=== PATIENT | male | born 1955 | race Caucasian/White ===

== ENCOUNTER 2019-08-14 09:41 | Emergency (ER) | payer BC ==
[2019-08-14 09:54] VITALS: TEMP 97.6
[2019-08-14] MEDS ORDERED: SODIUM CHLORIDE 0.9% 1,000 ML IV STA (10:41)
[2019-08-14] MEDS ORDERED: MECLIZINE 12.5 MG TAB PO STA (10:43)
[2019-08-14] MEDS ORDERED: METOCLOPRAMIDE 5 MG/ML 2 ML VIAL IVP STA (10:43)
--- NOTE | 2019-08-14 10:46 | ED ---
General Adult HPI - General Chief complaint: Dizziness Stated complaint: Dizzy Time Seen by Provider: 08/14/19 10:15 Source: patient, RN notes reviewed Mode of arrival: ambulatory Limitations: no limitations - History of Present Illness Initial comments: Patient is a pleasant [age]-year-old male presenting to the emergency Department with complaints of lightheadedness. Onset of symptoms was yesterday afternoon. Patient thought symptoms might be getting better this morning however realized later that they were not. Patient did was Dr. and had his ears cleaned out without much improvement of symptoms. Patient complains of lightheadedness. Symptoms are only present when patient goes from a sitting to standing position. Symptoms lasted around a minute and then resolved. Patient denies spinning type sensation. No speech problems. No confusion. No weakness. No headache. No history of similar symptoms previously. - Related Data Home Medications Medication Instructions Recorded Confirmed Levothyroxine Sodium [Synthroid] 175 mcg PO DAILY 08/14/19 08/14/19 Omeprazole 20 mg PO DAILY 08/14/19 08/14/19 Previous Rx's Medication Instructions Recorded Meclizine [Antivert] 25 mg PO TID PRN #12 tab 08/14/19 Metoclopramide HCl [Reglan] 10 mg PO Q6HR PRN #15 tablet 08/14/19 Allergies Allergy/AdvReac Type Severity Reaction Status Date / Time No Known Allergies Allergy Verified 08/14/19 14:21 Review of Systems ROS Statement: Those systems with pertinent positive or pertinent negative responses have been documented in the HPI. ROS Other: All systems not noted in ROS Statement are negative. Constitutional: Denies: fever Eyes: Denies: eye pain ENT: Denies: ear pain Respiratory: Denies: cough Cardiovascular: Denies: chest pain Endocrine: Denies: fatigue Gastrointestinal: Denies: abdominal pain Genitourinary: Denies: dysuria Musculoskeletal: Denies: back pain Skin: Denies: rash Neurological: Reports: as per HPI. Denies: headache, weakness, numbness, paresthesias, confusion, abnormal gait Past Medical History Past Medical History: No Reported History History of Any Multi-Drug Resistant Organisms: MRSA Date of last positivie culture/infection: 05/30/18 MDRO Source:: RIGHT LEG Past Surgical History: Hernia Repair Past Psychological History: No Psychological Hx Reported Smoking Status: Never smoker Past Alcohol Use History: Occasional Past Drug Use History: None Reported General Exam Limitations: no limitations General appearance: alert, in no apparent distress Head exam: Present: normocephalic Eye exam: Present: normal appearance, PERRL, EOMI. Absent: nystagmus ENT exam: Present: normal oropharynx Neck exam: Present: normal inspection Respiratory exam: Present: normal lung sounds bilaterally Cardiovascular Exam: Present: regular rate, normal rhythm GI/Abdominal exam: Present: soft. Absent: tenderness Extremities exam: Present: normal inspection Neurological exam: Present: alert, oriented X3, CN II-XII intact. Absent: motor sensory deficit Expanded Neurological exam: Present: protecting the airway Patient oriented to: Present: person, place, time Speech: Present: fluid speech Cranial nerves: EOM's Intact: Normal, Facial Sensation: Normal Cerebellar function: Finger to Nose: Normal Sensory exam: Upper Extremity Light Touch: Normal, Lower Extremity Light Touch: Normal Motor strength exam: RUE: 5, LUE: 5, RLE: 5, LLE: 5 Eye Response: (4) open spontaneously Motor Response: (6) obeys commands Verbal Response: (5) oriented Psychiatric exam: Present: normal affect, normal mood Skin exam: Present: normal color Course Vital Signs 08/14/19 08/14/19 08/14/19 09:50 10:05 12:34 Temperature 97.6 F Pulse Rate 52 L 55 L 45 L Respiratory 18 16 18 Rate Blood Pressure 165/118 160/99 151/95 O2 Sat by Pulse 100 99 97 Oximetry 08/14/19 14:24 Temperature Pulse Rate 52 L Respiratory 18 Rate Blood Pressure O2 Sat by Pulse 100 Oximetry EKG Findings - EKG Comments: EKG Findings:: Sinus bradycardia 47. SC 166. QRS 84. QT 434. QTC is 384. Left axis. Normal QRS. No acute ST change. Medical Decision Making - Medical Decision Making Patient reevaluated and resting comfortably in bed. Patient states he does get anxious when the blood pressure monitor goes off and believes this why his blood pressure is been on the high side. Patient states blood pressure was normal and his doctor's office earlier today. Patient is updated on results and need for follow-up. Patient states symptoms have significantly improved. Patient requesting discharge home. - Lab Data Result diagrams: 08/14/19 10:51 08/14/19 10:51 Lab Results 08/14/19 08/14/19 08/14/19 Range/Units 10:51 10:51 10:51 WBC 6.6 (3.8-10.6) k/uL RBC 4.94 (4.30-5.90) m/uL Hgb 15.2 (13.0-17.5) gm/dL Hct 44.5 (39.0-53.0) % MCV 90.2 (80.0-100.0) fL MCH 30.7 (25.0-35.0) pg MCHC 34.1 (31.0-37.0) g/dL RDW 12.7 (11.5-15.5) % Plt Count 241 (150-450) k/uL Neutrophils % 60 % Lymphocytes % 28 % Monocytes % 6 % Eosinophils % 3 % Basophils % 1 % Neutrophils # 3.9 (1.3-7.7) k/uL Lymphocytes # 1.9 (1.0-4.8) k/uL Monocytes # 0.4 (0-1.0) k/uL Eosinophils # 0.2 (0-0.7) k/uL Basophils # 0.0 (0-0.2) k/uL PT 9.6 (9.0-12.0) sec INR 0.9 (<1.2) APTT 22.8 (22.0-30.0) sec Sodium 137 (137-145) mmol/L Potassium 4.2 (3.5-5.1) mmol/L Chloride 105 (98-107) mmol/L Carbon Dioxide 24 (22-30) mmol/L Anion Gap 8 mmol/L BUN 17 (9-20) mg/dL Creatinine 0.99 (0.66-1.25) mg/dL Est GFR (CKD-EPI)AfAm >90 (>60 ml/min/1.73 sqM) Est GFR (CKD-EPI)NonAf 82 (>60 ml/min/1.73 sqM) Glucose 98 (74-99) mg/dL Calcium 9.5 (8.4-10.2) mg/dL Total Bilirubin 1.2 (0.2-1.3) mg/dL AST 32 (17-59) U/L ALT 37 (4-49) U/L Alkaline Phosphatase 59 (38-126) U/L Total Protein 7.4 (6.3-8.2) g/dL Albumin 4.3 (3.5-5.0) g/dL - Radiology Data Radiology results: report reviewed (Computed tomography scan of the brain shows no hemorrhage or mass effect. Degenerative and nonspecific changes. Hyperdense segment millimeter M1 segment of right MCA. CT angios shows no significant stenosis or aneurysmal changes. Including right M1 segment.) Disposition Clinical Impression: Lightheadedness, Hypertension Disposition: HOME SELF-CARE Condition: Stable Instructions (If sedation given, give patient instructions): Dizziness (ED) Additional Instructions: Please follow-up with primary care physician in the next day or 2 for recheck. Have primary care physician recheck blood pressure. Return for confusion, weakness, increased lightheadedness, worsening symptoms or other concerns. [id number] Antivert as needed. Prescription sent to [email or web address]. Prescriptions: Meclizine [Antivert] 25 mg PO TID PRN #12 tab PRN Reason: dizziness Metoclopramide HCl [Reglan] 10 mg PO Q6HR PRN #15 tablet PRN Reason: Nausea Is patient prescribed a controlled substance at d/c from ED?: No Referrals: Dano Diaz MD [Primary Care Provider] - 1-2 days Time of Disposition: 14:30
[2019-08-14 11:07] LABS: Basophils % (A) 1 %; Eosinophils # (A) 0.2 k/uL (0-0.7); Eosinophils % (A) 3 %; HCT 44.5 % (39.0-53.0); HGB 15.2 gm/dL (13.0-17.5); Lymphocytes # (A) 1.9 k/uL (1.0-4.8); Lymphocytes % (A) 28 %; MCH 30.7 pg (25.0-35.0); MCHC 34.1 g/dL (31.0-37.0); MCV 90.2 fL (80.0-100.0); Mean Platelet Volume 7.5; Monocytes # (A) 0.4 k/uL (0-1.0); Monocytes % (A) 6 %; Neutrophils # (A) 3.9 k/uL (1.3-7.7); Neutrophils % (A) 60 %; Platelet Count 241 k/uL (150-450); RBC 4.94 m/uL (4.30-5.90); RDW 12.7 % (11.5-15.5); WBC 6.6 k/uL (3.8-10.6)
[2019-08-14 11:16] LABS: INR 0.9 (<1.2); Partial Thromboplastin Time 22.8 sec (22.0-30.0); Prothrombin Time 9.6 sec (9.0-12.0)
[2019-08-14 11:20] LABS: ALT 37 U/L (4-49); AST 32 U/L (17-59); African American GFR (CKD) >90 (>60 ml/min/1.73 sqM); Albumin 4.3 g/dL (3.5-5.0); Alkaline Phosphatase 59 U/L (38-126); Anion Gap 8 mmol/L; Blood Urea Nitrogen 17 mg/dL (9-20); Calcium 9.5 mg/dL (8.4-10.2); Carbon Dioxide 24 mmol/L (22-30); Chloride 105 mmol/L (98-107); Glucose 98 mg/dL (74-99); Non-African American GFR(CKD) 82 (>60 ml/min/1.73 sqM); Potassium 4.2 mmol/L (3.5-5.1); Sodium 137 mmol/L (137-145); Total Bilirubin 1.2 mg/dL (0.2-1.3); Total Protein 7.4 g/dL (6.3-8.2)
--- NOTE | 2019-08-14 11:49 | CT ---
EXAMINATION TYPE: CT brain wo con DATE OF EXAM: 08/14/2019 COMPARISON: None HISTORY: Vertigo CT DLP: 989.5 mGycm Automated exposure control for dose reduction was used. FINDINGS: Mild generalized degenerative change. Low-attenuation the white matter is nonspecific but most typica l remote microvascular ischemia. Intracranial atherosclerotic changes are seen. Craniocervical juncti on is maintained. Portion of the right MCA is somewhat dense in appearance which may be related to pa rtial volume averaging with atherosclerotic changes. CTA is recommended. IMPRESSION: 1. No evidence of acute hemorrhage or mass effect. Degenerative and nonspecific white matter changes most typical remote ischemia. 2. Portion of the M1 segment of the right MCA is somewhat hyperdense which could be related to partia l volume averaging with atherosclerotic changes. However, recommend CTA [place] to exclude t hrombus and demonstrate normal enhancement of the artery.
[2019-08-14 12:35] VITALS: RESP 18
--- NOTE | 2019-08-14 13:24 | CT ---
EXAMINATION TYPE: CT angio head DATE OF EXAM: 08/14/2019 HISTORY: Dizziness and vertigo. COMPARISON: CT brain earlier today CT DLP: 830.2 mGycm. Automated Exposure Control for Dose Reduction was Utilized. TECHNIQUE: CTA scan of the head is performed with IV Contrast, patient injected with 100 mL of Isovu e 300, axial images are obtained, coronal and sagittal reformatted images are reviewed. Three-D recon structed images are created on an independent workstation and reviewed. FINDINGS: There is some tortuous course to distal vertebral arteries. Vertebral arteries are patent to basilar junction. Patent small caliber right posterior communicating artery. There is hypoplastic left posterior commun icating artery. No significant focal stenosis or aneurysmal change of the posterior circulation is pr esent. Images of the anterior circulation show patent small length anterior communicating artery. There is n o significant focal stenosis or parenchymal change in the anterior circulation including the right M1 segment at area of concern on recent CT. Good flow is seen in the remainder of right middle cerebral artery to the trifurcation distal to this. IMPRESSION: No significant stenosis or aneurysmal change at the level of [place].
[2019-08-14] MEDS ORDERED: amLODIPine 5 MG TAB PO STA ×2 (14:32→15:04)
[2019-08-14] MEDS ORDERED: LORazepam 2 MG/ML INJ IV STA (15:56)
[2019-08-14 16:51] VITALS: BP 146/92; PULSE 83
== END 2019-08-14 17:45 | disposition home or self-care (01) ==
LOC: EC 09:41
DX: I10 Essential (primary) hypertension (principal); R42 Dizziness and giddiness; Z86.14 Personal history of Methicillin resistant Staphylococcus aureus infection
CPT/HCPCS: 36415; 93005; 80053; 85025; 85610; 85730; 70496; 70450; 99284; 96374; 96375; 96361 ×6; J2060; J2765; Q9967

== ENCOUNTER → 2020-07-25 | Outpatient (CLI) | payer BC ==
--- NOTE | 2020-07-25 11:45 | US ---
EXAMINATION TYPE: US abdomen complete DATE OF EXAM: 07/25/2020 COMPARISON: NONE CLINICAL HISTORY: R10.9 Abdominal pain. recent episode with diverticulitis, no pain today EXAM MEASUREMENTS: Liver Length: 14.7cm Gallbladder Wall: 0.2cm CBD: 0.7cm Spleen: 13.8cm Right Kidney: 10.6 x 4.3 x 5.2cm Left Kidney: 10.7 x 4.9 x 5.4cm Pancreas: wnl Liver: wnl Gallbladder: 2 probable stones seen with no wall thickening Evidence for sonographic Youssef's sign: no CBD: wnl Spleen: slightly enlarged Right Kidney: wnl Left Kidney: wnl Upper IVC: wnl Abd Aorta: wnl IMPRESSION: 1. Cholelithiasis
== END | disposition home or self-care (01) ==
LOC: RADUSWWP 08:58
PROVIDERS: ATTEND Family Medicine
DX: K80.20 Calculus of gallbladder without cholecystitis without obstruction (principal)
CPT/HCPCS: 76700

== ENCOUNTER → 2021-07-02 | Day surgery (SDC) | payer BC ==
[~2021-07-02] MED LIST: LACTATED RINGERS 1,000 ML IV SCH; LIDOCAINE 1% (10MG/ML) FOR IV START INTRADERMA PRN; LIDOCAINE 1% INJ 10MG/ML (20 ML MDV) ONE; PROPOFOL 10 MG/ML 20 ML VIAL IV ONE
[2021-07-02 08:53] VITALS: BP 145/68; PULSE 77; RESP 18; TEMP 98.4
--- NOTE | 2021-07-02 12:22 | P.PCN ---
Date of Procedure: 07/02/21 Procedure(s) Performed: BRIEF HISTORY: Patient is a 65-year-old, pleasant, white male scheduled for an upper endoscopy as a part of evaluation of severe heartburn/intermittent dysphagia to solids of 1 year duration. Patient has long-standing history of GERD and has been on omeprazole 20 mg daily for a year but he was advised to change to Prevacid 20 mg twice daily because of the concern of side effects. In the last 6 months his symptoms have been progressively getting worse and hence scheduled for an upper endoscopy to rule out complicated reflux disease. PROCEDURE PERFORMED: Esophagogastroduodenoscopy with biopsy. PREOPERATIVE DIAGNOSIS: Severe heartburn/intermittent dysphagia to solids of 6 m onths duration. IV sedation per anesthesia. PROCEDURE: After informed consent was obtained, the patient was brought into the endoscopy unit. IV sedation was administered by Anesthesia under continuous monitoring. Initially the Olympus GIF-140 video endoscope was inserted into the mouth. Esophagus intubated without any difficulty. It was gradually advanced into the stomach and duodenum and carefully examined. The bulb and the second part of the duodenum appeared normal. The scope at this time was withdrawn to the stomach, adequately insufflated with air, and upon careful examination, mucosa of the antrum, gastritis and biopsies were done from this area. The body, cardia and the fundus appeared normal. The scope was then withdrawn into the esophagus. On recent hiatal hernia noted. The GE junction was located at 39 cm from the incisors. There were superficial ulcerations in the distal esophagus consistent with LA grade D reflux esophagitis. There was an early distal esophageal stricture identified. Rest of esophagus appeared normal and the patient tolerated the procedure well. IMPRESSION: 1. Early distal esophageal stricture with multiple superficial ulcerations in the esophagus consistent with LA grade D reflux esophagitis. 2. Moderate size hiatal hernia. 2. Mild antral gastritis RECOMMENDATIONS: The findings of this examination were discussed with the patient as well as her family. He was advised to start back on omeprazole 20 mg twice daily for 3 months and follow antireflux measures. He will discontinue the Pepcid for now. He was educated about diet modification. He'll be seen back in office in 3 months.. He continues to have persistent dysphagia in a repeat upper endoscopy dilation in the near future.
== END ==
LOC: ORWHC2ENDO 08:14
PROVIDERS: ATTEND Internal Medicine Gastroenterology
DX: K21.9 Gastro-esophageal reflux disease without esophagitis (principal); K22.2 Esophageal obstruction; K21.00 Gastro-esophageal reflux disease with esophagitis, without bleeding; K44.9 Diaphragmatic hernia without obstruction or gangrene; K29.70 Gastritis, unspecified, without bleeding
CPT/HCPCS: 43239; 88305; J2001; J2704

== ENCOUNTER 2023-10-17 18:44 | Emergency (ER) | payer MEDICARE ==
--- NOTE | 2023-10-17 19:01 | ED ---
Chest Pain HPI - General Source: patient, RN notes reviewed Mode of arrival: ambulatory Limitations: no limitations <Christopher Rubio - Last Filed: 10/17/23 19:01> - History of Present Illness MD Complaint: chest pain, other ( did want patient to get evaluation with chest pain and elevated blood pressure) Onset: during rest, during exertion Pain Location: substernal Pain Radiation: none Severity: moderate Severity scale (1-10): 4 Quality: heaviness Consistency: constant, now resolved Improves With: nothing Worsens With: nothing Anginal Symptoms: other (0) Other Symptoms: other (0) Treatments Prior to Arrival: none <Jackson Phillips - Last Filed: 10/22/23 04:28> - General Chief Complaint: Chest Pain Stated Complaint: Chest Pains Time Seen by Provider: 10/17/23 18:57 - History of Present Illness Initial Comments: 67-year-old male presented to the ED with complaints of chest pain. Patient states that last night started to feel pain in his chest which eventually resolved on its home. States today after playing golf and getting some fluid sat down and started to feel the same type of pain again prompting presentation to the ED for further evaluation. (Christopher Rubio) This is a 67-year-old male to ER for evaluation of chest pain chest pain going up with elevation of blood pressure heaviness on his chest which is all currently resolved (Jackson Phillips) - Related Data Home Medications Medication Instructions Recorded Confirmed Levothyroxine Sodium [Synthroid] 175 mcg PO DAILY 08/14/19 10/19/23 [place]-3 Fatty Acids/Fish Oil [Fish 1 cap PO DAILY 06/27/21 10/19/23 Oil 1,000 mg Softgel] Aspirin EC [Ecotrin Low Dose] 81 mg PO DAILY 10/19/23 10/19/23 Omeprazole [PriLOSEC] 20 mg PO DAILY 10/19/23 10/19/23 Allergies Allergy/AdvReac Type Severity Reaction Status Date / Time No Known Allergies Allergy Verified 10/19/23 07:13 Review of Systems ROS Other: All systems not noted in ROS Statement are negative. <Christopher Rubio - Last Filed: 10/17/23 19:01> ROS Other: All systems not noted in ROS Statement are negative. <Jackson Phillips - Last Filed: 10/22/23 04:28> ROS Statement: Those systems with pertinent positive or pertinent negative responses have been documented in the HPI. Past Medical History Past Medical History: GERD/Reflux, Thyroid Disorder Additional Past Medical History / Comment(s): HAD COVID IN 2020. DIVERTICULITIS. GOUTT History of Any Multi-Drug Resistant Organisms: MRSA Date of last positivie culture/infection: 05/30/18 MDRO Source:: RIGHT LEG Past Surgical History: Hernia Repair Additional Past Surgical History / Comment(s): bilateral ing hernia (EACH AT DIFFERENT TIMES) Past Anesthesia/Blood Transfusion Reactions: No Reported Reaction Past Psychological History: No Psychological Hx Reported Smoking Status: Never smoker Past Alcohol Use History: Occasional Past Drug Use History: None Reported <Christopher Rubio - Last Filed: 10/17/23 19:01> General Exam Limitations: no limitations <Christopher Rubio - Last Filed: 10/17/23 19:01> General appearance: alert, in no apparent distress Head exam: Present: atraumatic, normocephalic, normal inspection Eye exam: Present: normal appearance, PERRL, EOMI. Absent: scleral icterus, conjunctival injection, periorbital swelling ENT exam: Present: normal exam, mucous membranes moist Neck exam: Present: normal inspection. Absent: tenderness, meningismus, lymphadenopathy Respiratory exam: Present: normal lung sounds bilaterally. Absent: respiratory distress, wheezes, rales, rhonchi, stridor Cardiovascular Exam: Present: regular rate, normal rhythm, normal heart sounds. Absent: systolic murmur, diastolic murmur, rubs, gallop, clicks GI/Abdominal exam: Present: soft, normal bowel sounds. Absent: distended, tenderness, guarding, rebound, rigid Extremities exam: Present: normal inspection, full ROM, normal capillary refill. Absent: tenderness, pedal edema, joint swelling, calf tenderness Back exam: Present: normal inspection Neurological exam: Present: alert, oriented X3, CN II-XII intact Psychiatric exam: Present: normal affect, normal mood Skin exam: Present: warm, dry, intact, normal color. Absent: rash <Jackson Phillips - Last Filed: 10/22/23 04:28> - General Exam Comments Initial Comments: Visual Physical Exam Vital signs reviewed General: Well-appearing, nontoxic, no acute distress. Head: Normocephalic, atraumatic Eyes: PERRLA, EOMI ENT: Airway patent Chest: Nonlabored breathing Skin: No visual rash, normal skin tone Neuro: Alert and oriented 3 Musculoskeletal: No gross abnormalities (Christopher Rubio) Course <Jackson Phillips - Last Filed: 10/22/23 04:28> Vital Signs 10/17/23 10/17/23 10/17/23 18:47 20:59 23:35 Temperature 98 F 98.2 F Pulse Rate 76 56 L 50 L Respiratory 16 18 18 Rate Blood Pressure 169/113 168/96 173/90 O2 Sat by Pulse 98 97 96 Oximetry - Reevaluation(s) Reevaluation #1: 10/17/23 22:33 Medical records reviewed (Jackson Phillips) Reevaluation #2: 10/17/23 22:33 Patient symptoms remain resolved, no chest pain (Jackson Phillips) Reevaluation #3: 10/17/23 22:33 Patient informed of results questions answered Studies Chest x-ray is negative for acute disease CTA chest negative for acute disease (Jackson Phillips) Reevaluation #4: Was pt. sent in by a medical professional or institution (Dr. PA, STRAIGHTENING PRESS OPERATOR HELPER, urgent care, hospital, or long-term...) When possible be specific @ -no Did you speak to anyone other than the patient for history (EMS, parent, family, police, friend...)? What history was obtained from this source @ -no Did you review nursing and triage notes (agree or disagree)? Why? @ -agree Are old charts reviewed (outside hosp., previous admission, EMS record, old EKG, old radiological studies, urgent care reports/EKG's, long-term records)? Report findings @ -yes Differential Diagnosis (chest pain, altered mental status, abdominal pain women, abdominal pain men, vaginal bleeding, weakness, fever, dyspnea, syncope, headache, dizziness, GI bleed, back pain, seizure, CVA, palpatations, mental health, musculoskeletal)? @ -prior EKG interpreted by me (3pts min.). @ -yes X-rays interpreted by me (1pt min.). @ -yes negative for acute disease CT interpreted by me (1pt min.). @ -Yes negative for acute disease U/S interpreted by me (1pt. min.). @ -no What testing was considered but not performed or refused? (CT, X-rays, U/S, labs)? Why? @ -none What meds were considered but not given or refused? Why? @ -none Did you discuss the management of the patient with other professionals (professionals i.e. , PA, STRAIGHTENING PRESS OPERATOR HELPER, lab, RT, psych nurse, director social service, manufacturing job titles, teacher, [place] 9 police officer, case advocate)? Give summary @ -no Was smoking cessation discussed for >3mins.? @ -no Was critical care preformed (if so, how long)? @ -no Were there social determinants of health that impacted care today? How? (Homelessness, low income, unemployed, alcoholism, drug addiction, transportation, low edu. Level, literacy, decrease access to med. care, prison, rehab)? @ -none Was there de-escalation of care discussed even if they declined (Discuss DNR or withdrawal of care, Hospice)? DNR status @ -no What co-morbidities impacted this encounter? (DM, HTN, Smoking, COPD, CAD, Cancer, CVA, ARF, Chemo, Hep., AIDS, mental health diagnosis, sleep apnea, morbid obesity)? @ -none Was patient admitted / discharged? Hospital course, mention meds given and route, prescriptions, significant lab abnormalities, going to OR and other pertinent info. @ - 67 male with chest pain and hypertension. No chest pain throughout ER stay. Troponin negative x 2 CT negative as patient did have strange symptoms on 1 side of his head and neck to the other side. Patient has no other findings here in the ER and can be discharged home patient does not want blood pressure control currently Discharged Undiagnosed new problem with uncertain prognosis? @ -no Drug Therapy requiring intensive monitoring for toxicity (Heparin, Nitro, Insulin, Cardizem)? @ -no Were any procedures done? @ -no Diagnosis/symptom? @ -Chest pain Acute, or Chronic, or Acute on Chronic? @ -Acute Uncomplicated (without systemic symptoms) or Complicated (systemic symptoms)? @ -Complicated Side effects of treatment? @ -no Exacerbation, Progression, or Severe Exacerbation? @ -exacerbation Poses a threat to life or bodily function? How? (Chest pain, [place], DC, pneumonia, PE, COPD, DKA, ARF, appy, cholecystitis, CVA, Diverticulitis, Homicidal, Suicidal, threat to staff... and all critical care pts) @ -yes with chest pain (Jackson Phillips) Reevaluation #5: Differential Chest Pain: Stable Angina, Unstable Angina, STEMI, NSTEMI Aortic Dissection, Pneumothorax, Musculoskeletal, Esophageal Spasm GERD, Cholecystitis, Pancreatitis, Zoster, this is not meant to be an all-inclusive list. (Jackson Phillips) Chest Pain MDM <Christopher Rubio - Last Filed: 10/17/23 19:01> <Jackson Phillips - Last Filed: 10/22/23 04:28> - MDM Quicknote portion performed. Signed Christopher Rubio PA-C (Christopher Rubio) 67 male with chest pain and hypertension. No chest pain throughout ER stay. Troponin negative x 2 CT negative as patient did have strange symptoms on 1 side of his head and neck to the other side. Patient has no other findings here in the ER and can be discharged home patient does not want blood pressure control currently (Jackson Phillips) Disposition <Christopher Rubio - Last Filed: 10/17/23 19:01> Is patient prescribed a controlled substance at d/c from ED?: No Time of Disposition: 23:30 <Jackson Phillips - Last Filed: 10/22/23 04:28> Clinical Impression: Atypical chest pain, Chest pain, Hypertension Disposition: HOME SELF-CARE Condition: Good Instructions (If sedation given, give patient instructions): Chest Pain (ED), Hypertension (ED) Referrals: Dano Diaz MD [Primary Care Provider] - 1-2 days
--- NOTE | 2023-10-17 19:18 | XR ---
EXAMINATION TYPE: XR chest 2V DATE OF EXAM: 10/17/2023 7:08 PM CLINICAL INDICATION:Male, 67 years old with history of Chest Pain; [facility] COMPARISON: Chest radiographs from 06/26/2015 TECHNIQUE: XR chest 2V Frontal and lateral views of the chest. FINDINGS: Lungs/Pleura: There is no evidence of pleural effusion, focal consolidation, or pneumothorax. Pulmonary vascularity: Unremarkable. Heart/mediastinum: Cardiomediastinal silhouette is unremarkable. Atherosclerotic calcifications are seen in the aorta. Musculoskeletal: No acute osseous pathology. IMPRESSION: No acute cardiopulmonary disease/process.
[2023-10-17 19:52] LABS: Basophils % (A) 1 %; Eosinophils # (A) 0.2 k/uL (0-0.7); Eosinophils % (A) 3 %; HCT 47.3 % (39.0-53.0); HGB 15.8 gm/dL (13.0-17.5); Lymphocytes # (A) 2.1 k/uL (1.0-4.8); Lymphocytes % (A) 34 %; MCHC 33.5 g/dL (31.0-37.0); MCV 92.4 fL (80.0-100.0); Mean Platelet Volume 8.1; Monocytes # (A) 0.3 k/uL (0-1.0); Monocytes % (A) 5 %; Neutrophils # (A) 3.4 k/uL (1.3-7.7); Neutrophils % (A) 56 %; Platelet Count 256 k/uL (150-450); RBC 5.12 m/uL (4.30-5.90)
[2023-10-17 20:03] LABS: INR 0.9 (<1.2); Prothrombin Time 10.4 sec (10.0-12.5)
[2023-10-17 20:15] LABS: ALT 34 U/L (4-49); AST 34 U/L (17-59); African American GFR (CKD) 86 (>60 ml/min/1.73 sqM); Albumin 4.7 g/dL (3.5-5.0); Alkaline Phosphatase 68 U/L (38-126); Anion Gap 11 mmol/L; Blood Urea Nitrogen 19 mg/dL (9-20); Calcium 9.4 mg/dL (8.4-10.2); Carbon Dioxide 24 mmol/L (22-30); Chloride 104 mmol/L (98-107); Glucose 117 mg/dL (74-99); Non-African American GFR(CKD) 75 (>60 ml/min/1.73 sqM); Potassium 4.2 mmol/L (3.5-5.1); Sodium 139 mmol/L (137-145); Total Bilirubin 1.5 mg/dL (0.2-1.3); Total Protein 7.7 g/dL (6.3-8.2)
[2023-10-17 21:07] VITALS: RESP 18
[2023-10-17] MEDS: SODIUM CHLORIDE 0.9% 1,000 ML IV STA (21:58)
--- NOTE | 2023-10-17 22:27 | CT ---
EXAM: CT Angiography Chest With Intravenous Contrast CLINICAL HISTORY: ITS.REASON CT Reason: Pain TECHNIQUE: Axial computed tomographic angiography images of the chest with intravenous contrast. CTDI is 75.8 mGy and DLP is 353.8 mGy-cm. This CT exam was performed using one or more of the following dose reduction techniques: automated exposure control, adjustment of the mA and/or kV according to patient size, and/or use of iterative reconstruction technique. MIP reconstructed images were created and reviewed. COMPARISON: No relevant prior studies available. FINDINGS: LUNGS: No focal consolidation, pleural effusion, or pneumothorax. Atelectasis at the lung bases. HEART: Cardiomegaly. VASCULATURE: No acute pulmonary embolism. Atherosclerotic changes of the aorta. THYROID: Within normal limits. MEDIASTINUM + LYMPH NODES: There are no pathologically enlarged mediastinal, hilar, or axillary lymph nodes. SUPERIOR ABDOMEN: Hepatic steatosis. Small hiatal hernia. MUSCULOSKELETAL: Degenerative changes. IMPRESSION: No acute pulmonary embolism. Small hiatal hernia.
[2023-10-18 00:11] VITALS: BP 173/90; PULSE 50; TEMP 98.2
== END 2023-10-17 23:39 | disposition home or self-care (01) ==
LOC: EC 18:44
DX: K44.9 Diaphragmatic hernia without obstruction or gangrene (principal); I10 Essential (primary) hypertension; R07.89 Other chest pain
CPT/HCPCS: 36415; 93005; 85379; 80053; 83690; 83735; 84484; 85025; 85610; 85730; 71046; 71275; 99285; 96360; Q9967

== ENCOUNTER 2023-10-19 04:39 | Inpatient (IN) | payer MEDICARE ==
[2023-10-19 05:07] LABS: Basophils # (A) 0.1 k/uL (0-0.2); Basophils % (A) 1 %; Eosinophils # (A) 0.2 k/uL (0-0.7); Eosinophils % (A) 4 %; HCT 49.3 % (39.0-53.0); HGB 16.2 gm/dL (13.0-17.5); Lymphocytes # (A) 2.3 k/uL (1.0-4.8); Lymphocytes % (A) 43 %; MCH 30.6 pg (25.0-35.0); MCHC 32.9 g/dL (31.0-37.0); MCV 93.2 fL (80.0-100.0); Mean Platelet Volume 7.6; Monocytes # (A) 0.4 k/uL (0-1.0); Monocytes % (A) 7 %; Neutrophils # (A) 2.3 k/uL (1.3-7.7); Neutrophils % (A) 43 %; Platelet Count 280 k/uL (150-450); RBC 5.29 m/uL (4.30-5.90); RDW 13.1 % (11.5-15.5); WBC 5.5 k/uL (3.8-10.6)
--- NOTE | 2023-10-19 05:14 | ED ---
Chest Pain HPI - General Chief Complaint: Chest Pain Stated Complaint: Chest pain Time Seen by Provider: 10/19/23 04:54 Source: patient, RN notes reviewed, old records reviewed Mode of arrival: wheelchair Limitations: no limitations - History of Present Illness Initial Comments: This is a 67-year-old male to the ER for evaluation of chest pain chest pain that woke him up from sleep today. Patient has been dealing with high blood pressure and does have a recent ER visit for chest pain and he states at that point he was feeling well in the ER and discharged home. Patient has persistent chest pain severe that woke him up from sleep today and patient presents to ER for evaluation of chest pain does have primary care visit today as well MD Complaint: chest pain -: hour(s) Onset: awoke with symptoms Pain Location: substernal Pain Radiation: none Severity: severe Severity scale (1-10): 8 Quality: tightness, aching, heaviness Consistency: constant Improves With: nothing Worsens With: nothing Context: recent illness Other Symptoms: cough Treatments Prior to Arrival: none - Related Data Home Medications Medication Instructions Recorded Confirmed Levothyroxine Sodium [Synthroid] 175 mcg PO DAILY 08/14/19 10/25/23 Aspirin EC [Ecotrin Low Dose] 81 mg PO DAILY 10/19/23 10/25/23 Omeprazole [PriLOSEC] 20 mg PO DAILY 10/19/23 10/25/23 Nitroglycerin Sl Tabs [Nitrostat] 0.4 mg SL Q5M PRN 10/25/23 10/25/23 Previous Rx's Medication Instructions Recorded Atorvastatin [Lipitor] 80 mg PO DAILY #90 tab 10/23/23 Clopidogrel [Plavix] 75 mg PO DAILY #90 tab 10/23/23 Isosorbide Mononitrate ER [Imdur] 30 mg PO DAILY #90 tab 10/23/23 Metoprolol Succinate (ER) [Toprol 12.5 mg PO DAILY #45 tab 10/23/23 XL] Allergies Allergy/AdvReac Type Severity Reaction Status Date / Time No Known Allergies Allergy Verified 10/25/23 14:20 Review of Systems ROS Statement: Those systems with pertinent positive or pertinent negative responses have been documented in the HPI. ROS Other: All systems not noted in ROS Statement are negative. EKG Findings - EKG Comments: EKG Findings:: EKG is sinus 61 [place] 171 QRS 82 QTc 422 - EKG Results: EKG: interpreted by LIZZ Past Medical History Past Medical History: GERD/Reflux, Thyroid Disorder Additional Past Medical History / Comment(s): HAD COVID IN 2020. DIVERTICULITIS. GOUTT History of Any Multi-Drug Resistant Organisms: MRSA Date of last positivie culture/infection: 05/30/18 MDRO Source:: RIGHT LEG Past Surgical History: Hernia Repair Additional Past Surgical History / Comment(s): bilateral ing hernia (EACH AT DIFFERENT TIMES) Past Anesthesia/Blood Transfusion Reactions: No Reported Reaction Past Psychological History: No Psychological Hx Reported Smoking Status: Never smoker Past Alcohol Use History: Occasional Past Drug Use History: None Reported - Past Family History Father Family Medical History: Hypertension, Myocardial Infarction (VT) Mother Additional Family Medical History / Comment(s): lupus General Exam Limitations: no limitations General appearance: alert, in no apparent distress Head exam: Present: atraumatic, normocephalic, normal inspection Eye exam: Present: normal appearance, PERRL, EOMI. Absent: scleral icterus, conjunctival injection, periorbital swelling ENT exam: Present: normal exam, mucous membranes moist Neck exam: Present: normal inspection. Absent: tenderness, meningismus, lymphadenopathy Respiratory exam: Present: normal lung sounds bilaterally. Absent: respiratory distress, wheezes, rales, rhonchi, stridor Cardiovascular Exam: Present: regular rate, normal rhythm, normal heart sounds. Absent: systolic murmur, diastolic murmur, rubs, gallop, clicks GI/Abdominal exam: Present: soft, normal bowel sounds. Absent: distended, tenderness, guarding, rebound, rigid Extremities exam: Present: normal inspection, full ROM, normal capillary refill. Absent: tenderness, pedal edema, joint swelling, calf tenderness Back exam: Present: normal inspection Neurological exam: Present: alert, oriented X3, CN II-XII intact Psychiatric exam: Present: normal affect, normal mood Skin exam: Present: warm, dry, intact, normal color. Absent: rash Course Vital Signs 10/19/23 10/19/23 10/19/23 04:40 06:28 07:10 Temperature 97.8 F Pulse Rate 57 L 56 L 50 L Respiratory 18 16 16 Rate Blood Pressure 187/119 177/115 150/106 O2 Sat by Pulse 97 100 100 Oximetry - Reevaluation(s) Reevaluation #1: 10/19/23 05:41 Medical records reviewed Reevaluation #2: 10/19/23 05:41 Patient still without chest pain Reevaluation #3: 10/19/23 05:41 Patient informed of results and questions answered Studies Chest x-ray is negative for acute disease Reevaluation #4: Was pt. sent in by a medical professional or institution (, [facility], PASSENGER LOCOMOTIVE ENGINEER, urgent care, hospital, or assisted...) When possible be specific @ -no Did you speak to anyone other than the patient for history (EMS, parent, family, police, friend...)? What history was obtained from this source @ -no Did you review nursing and triage notes (agree or disagree)? Why? @ -agree Are old charts reviewed (outside hosp., previous admission, EMS record, old EKG, old radiological studies, urgent care reports/EKG's, assisted records)? Report findings @ -yes Differential Diagnosis (chest pain, altered mental status, abdominal pain women, abdominal pain men, vaginal bleeding, weakness, fever, dyspnea, syncope, h eadache, dizziness, GI bleed, back pain, seizure, CVA, palpatations, mental health, musculoskeletal)? @ -prior EKG interpreted by me (3pts min.). @ -yes X-rays interpreted by me (1pt min.). @ -yes negative for acute disease CT interpreted by me (1pt min.). @ -no U/S interpreted by me (1pt. min.). @ -no What testing was considered but not performed or refused? (CT, X-rays, U/S, labs)? Why? @ -none What meds were considered but not given or refused? Why? @ -none Did you discuss the management of the patient with other professionals (professionals i.e. , [facility], PASSENGER LOCOMOTIVE ENGINEER, lab, RT, psych nurse, clinical social work therapist, shrimp trawler, teacher, workers' compensation hearings officer, casework specialist)? Give summary @ -no Was smoking cessation discussed for >3mins.? @ -no Was critical care preformed (if so, how long)? @ -yes31 Were there social determinants of health that impacted care today? How? (Homelessness, low income, unemployed, alcoholism, drug addiction, transportation, low edu. Level, literacy, decrease access to med. care, senior care, rehab)? @ -none Was there de-escalation of care discussed even if they declined (Discuss DNR or withdrawal of care, Hospice)? DNR status @ -no What co-morbidities impacted this encounter? (DM, HTN, Smoking, COPD, CAD, Cancer, CVA, ARF, Chemo, Hep., AIDS, mental health diagnosis, sleep apnea, morbid obesity)? @ -none Was patient admitted / discharged? Hospital course, mention meds given and route, prescriptions, significant lab abnormalities, going to OR and other pertinent info. @ - 67 male will be admitted for chest pain observation with recurrent chest pain to ER visits this week with hypertension Admitted Undiagnosed new problem with uncertain prognosis? @ -no Drug Therapy requiring intensive monitoring for toxicity (Heparin, Nitro, Insulin, Cardizem)? @ -no Were any procedures done? @ -no Diagnosis/symptom? @ -Chest pain, rule out ACS Acute, or Chronic, or Acute on Chronic? @ -Acute Uncomplicated (without systemic symptoms) or Complicated (systemic symptoms)? @ -Complicated Side effects of treatment? @ -no Exacerbation, Progression, or Severe Exacerbation? @ -exacerbation Poses a threat to life or bodily function? How? (Chest pain, [place], VT, pneumonia, PE, COPD, DKA, ARF, appy, cholecystitis, CVA, Diverticulitis, Homicidal, Suicidal, threat to staff... and all critical care pts) @ -yes with chest pain Reevaluation #5: Differential Chest Pain: Stable Angina, Unstable Angina, STEMI, NSTEMI Aortic Dissection, Pneumothorax, Musculoskeletal, Esophageal Spasm GERD, Cholecystitis, Pancreatitis, Zoster, this is not meant to be an all-inclusive list. - Consultations Consultation #1: Spoke with [facility] who agrees to admit this patient Chest Pain MDM - MDM 67 male will be admitted for chest pain observation with recurrent chest pain to ER visits this week with hypertension Critical Care Time Critical Care Time: Yes Total Critical Care Time: 31 Disposition Clinical Impression: Chest pain, Hypertension Disposition: ADMITTED IP TO THIS HOSP Condition: Undetermined Is patient prescribed a controlled substance at d/c from ED?: No
[2023-10-19 05:20] LABS: ALT 33 U/L (4-49); AST 35 U/L (17-59); African American GFR (CKD) >90 (>60 ml/min/1.73 sqM); Albumin 4.6 g/dL (3.5-5.0); Alkaline Phosphatase 65 U/L (38-126); Anion Gap 10 mmol/L; Blood Urea Nitrogen 17 mg/dL (9-20); Calcium 9.6 mg/dL (8.4-10.2); Carbon Dioxide 22 mmol/L (22-30); Chloride 107 mmol/L (98-107); Glucose 96 mg/dL (74-99); Magnesium 1.9 mg/dL (1.6-2.3); Non-African American GFR(CKD) 79 (>60 ml/min/1.73 sqM); Sodium 139 mmol/L (137-145); Total Bilirubin 1.4 mg/dL (0.2-1.3); Total Protein 7.6 g/dL (6.3-8.2)
[2023-10-19] MEDS ORDERED: MORPHINE SULFATE 4 MG/ML SYRINGE IV PRN (05:42)
[2023-10-19] MEDS ORDERED: NITROGLYCERIN SL TABS 0.4 MG TAB SUBLINGUAL PRN (05:42)
[2023-10-19 06:02] LABS: INR 0.9 (<1.2); Partial Thromboplastin Time 24.4 sec (22.0-30.0); Prothrombin Time 10.4 sec (10.0-12.5)
[2023-10-19] MEDS: ASPIRIN 81 MG PO STA (06:09)
[2023-10-19] MEDS: SODIUM CHLORIDE 0.9% 1,000 ML IV SCH (06:10)
[2023-10-19] MEDS: HEPARIN SODIUM 1,000 UN/ML (10ML VL) IV ONE (06:14)
[2023-10-19] MEDS: ATORVASTATIN 80 MG TAB PO SCH (06:14)
[2023-10-19] MEDS: HEPARIN SOD,PORK IN 0.45% NACL 25,000 UNIT in 0.45% NACL 1 250ML.BAG IV SCH ×2 (06:18→11:17)
--- NOTE | 2023-10-19 07:25 | P.CRDCN ---
History of Present Illness Consult date: 10/19/23 Chief complaint: Chest pain History of present illness: The patient is a pleasant 67-year-old gentleman with no significant past medical history who presented to the emergency department complaining of chest discomfort. He was in his usual state of health till yesterday when he woke up from sleep complaining of discomfort in the middle of the chest as a pressure on the chest with no radiation into the arms or neck or shoulders or back and no associated symptoms of shortness of breath or sweating or dizziness or lightheadedness or any feeling of heart racing or fluttering or presyncope or syncope. The discomfort lasted for about 30 minutes and resolved completely after that. He presented for further evaluation. He underwent an EKG which revealed normal sinus mechanism with sinus bradycardia no ischemic ST or T wave abnormalities. First set of troponin came in to be unremarkable. The rest of the blood work including CBC and BMP came in to be unremarkable as well. Please note that his pressure has been elevated and consistent with stage II hypertension but the patient is not aware of any history of hypertension and he does not take any medications at home for hypertension or dyslipidemia and he has no history of coronary artery disease or heart failure or cardiac arrhythmia and never seen any outside collector before. He does have significant family history with a father who has coronary artery disease at a early stage in his life. The examination is remarkable for regular rhythm with a systolic murmur and clear breathing sounds bilaterally and no carotid bruit and no edema was noted Assessment Chest discomfort Hypertension emergency could be the etiology for the chest discomfort Significant family history of coronary artery disease Plan Rule out acute coronary event Follow-up with the serial cardiac enzymes Obtain a chest x-ray Start the patient on losartan/hydrochlorothiazide Start the patient on hydralazine IV as needed for hypertension Obtain an echocardiogram with Doppler Consider stress test once the pressure improve if he ruled out for acute coronary syndrome Follow-up with the patient Past Medical History Past Medical History: GERD/Reflux, Thyroid Disorder Additional Past Medical History / Comment(s): HAD COVID IN 2020. DIVERTICULITIS. GOUTT History of Any Multi-Drug Resistant Organisms: MRSA Date of last positivie culture/infection: 05/30/18 MDRO Source:: RIGHT LEG Past Surgical History: Hernia Repair Additional Past Surgical History / Comment(s): bilateral ing hernia (EACH AT DIFFERENT TIMES) Past Anesthesia/Blood Transfusion Reactions: No Reported Reaction Past Psychological History: No Psychological Hx Reported Smoking Status: Never smoker Past Alcohol Use History: Occasional Past Drug Use History: None Reported Medications and Allergies Home Medications Medication Instructions Recorded Confirmed Type Levothyroxine Sodium [Synthroid] 175 mcg PO DAILY 08/14/19 10/19/23 History [place]-3 Fatty Acids/Fish Oil [Fish 1 cap PO DAILY 06/27/21 10/19/23 History Oil 1,000 mg Softgel] Aspirin EC [Ecotrin Low Dose] 81 mg PO DAILY 10/19/23 10/19/23 History Omeprazole [PriLOSEC] 20 mg PO DAILY 10/19/23 10/19/23 History Allergies Allergy/AdvReac Type Severity Reaction Status Date / Time No Known Allergies Allergy Verified 10/19/23 07:13 Physical Exam Vitals: Vital Signs Temp Pulse Resp BP Pulse Ox 10/19/23 07:10 50 L 16 150/106 100 10/19/23 06:28 56 L 16 177/115 100 10/19/23 04:40 97.8 F 57 L 18 187/119 97 Intake and Output 10/18/23 10/19/23 10/19/23 22:59 06:59 14:59 Other: Weight 83.915 kg Results 10/19/23 04:51 10/19/23 04:51 Cardiac Enzymes 10/19/23 10/19/23 Range/Units 04:51 04:51 AST 35 (17-59) U/L Troponin I <0.012 (0.000-0.034) ng/mL Coagulation 10/19/23 Range/Units 04:51 PT 10.4 (10.0-12.5) sec APTT 24.4 (22.0-30.0) sec CBC 10/19/23 Range/Units 04:51 WBC 5.5 (3.8-10.6) k/uL RBC 5.29 (4.30-5.90) m/uL Hgb 16.2 (13.0-17.5) gm/dL Hct 49.3 (39.0-53.0) % Plt Count 280 (150-450) k/uL Comprehensive Metabolic Panel 10/19/23 Range/Units 04:51 Sodium 139 (137-145) mmol/L Potassium 4.0 (3.5-5.1) mmol/L Chloride 107 (98-107) mmol/L Carbon Dioxide 22 (22-30) mmol/L BUN 17 (9-20) mg/dL Creatinine 1.00 (0.66-1.25) mg/dL Glucose 96 (74-99) mg/dL Calcium 9.6 (8.4-10.2) mg/dL AST 35 (17-59) U/L ALT 33 (4-49) U/L Alkaline Phosphatase 65 (38-126) U/L Total Protein 7.6 (6.3-8.2) g/dL Albumin 4.6 (3.5-5.0) g/dL Current Medications Generic Name Dose Route Start Last Admin Trade Name Freq PRN Reason Stop Dose Admin Aspirin 325 mg 10/20/23 09:00 Aspirin 325 Mg Tab PO DAILY AYUSH Atorvastatin Calcium 80 mg 10/19/23 09:00 10/19/23 06:14 Atorvastatin 80 Mg Tab PO 80 mg DAILY AYUSH Administration HCTZ/Losartan Potassium 1 each 10/19/23 09:00 Losartan-Hctz 50-12.5 Mg 1 Each Tab PO DAILY AYUSH Sodium Chloride 1,000 mls @ 20 mls/hr 10/19/23 05:45 10/19/23 06:10 Saline 0.9% IV 20 mls/hr .Q24H AYUSH Administration Morphine Sulfate 4 mg 10/19/23 05:42 Morphine Sulfate 4 Mg/Ml Syringe IV Q4HR PRN Chest Pain Nitroglycerin 0.4 mg 10/19/23 05:42 Nitroglycerin Sl Tabs 0.4 Mg Tab SUBLINGUAL Q5M PRN Chest Pain Intake and Output 10/18/23 10/19/23 10/19/23 22:59 06:59 14:59 Other: Weight 83.915 kg 10/19/23 04:51 10/19/23 04:51
[2023-10-19] MEDS ORDERED: hydrALAZINE HCL 20 MG/ML 1 ML VIAL IVP PRN (07:28)
--- NOTE | 2023-10-19 08:13 | XR ---
EXAMINATION TYPE: XR chest 2V DATE OF EXAM: 10/19/2023 COMPARISON: 10/17/2023 TECHNIQUE: PA and lateral views submitted. HISTORY: Chest pain FINDINGS: The lungs are clear and there is no pneumothorax, pleural effusion, or focal pneumonia. Heart size normal and no overt failure. Osseous structures demonstrate hypertrophic and degenerative changes of the spine. Arthropathy of the shoulder. IMPRESSION: 1. No acute process.
[2023-10-19] MEDS: LOSARTAN-HCTZ 50-12.5 MG 1 EACH TAB PO SCH (08:36)
[2023-10-19 09:13] LABS: Mean Platelet Volume 7.8; Platelet Count 236 k/uL (150-450)
--- NOTE | 2023-10-19 12:04 | P.HPIM ---
History of Present Illness 62-year-old male came in with complaints of chest pressure-like sensation in the middle of the chest without any radiation lasted for half an hour denies any lightheadedness or diaphoresis, EKG was sinus bradycardia without any ST-T wave changes first troponin was negative second troponin slightly elevated to 0.058 patient had similar symptoms couple days ago was seen in ER 3 sets of troponins were negative patient was subsequently discharged to get an outpatient stress test. Patient has significant family history of heart disease in father who had myocardial infarction at age 68. Patient does not smoke does not have hyperten francoise, hyperlipidemia or diabetes mellitus. Patient has hypothyroidism. REVIEW OF SYSTEMS: CONSTITUTIONAL: No fever, no malaise, no fatigue. HEENT: No recent visual problems or hearing problems. Denied any sore throat. CARDIOVASCULAR: No orthopnea, PND, no palpitations, no syncope. PULMONARY: No shortness of breath, no cough, no hemoptysis. GASTROINTESTINAL: No diarrhea, no nausea, no vomiting, no abdominal pain. NEUROLOGICAL: No headaches, no weakness, no numbness. HEMATOLOGICAL: Denies any bleeding or petechiae. GENITOURINARY: Denies any burning micturition, frequency, or urgency. MUSCULOSKELETAL/RHEUMATOLOGICAL: Denies any joint pain, swelling, or any muscle pain. ENDOCRINE: Denies any polyuria or polydipsia. The rest of the 14-point review of systems is negative. PHYSICAL EXAMINATION: GENERAL: The patient is alert and oriented x3, not in any acute distress. Well d eveloped, well nourished. HEENT: Pupils are round and equally reacting to light. EOMI. No scleral icterus. No conjunctival pallor. Normocephalic, atraumatic. No pharyngeal erythema. No thyromegaly. CARDIOVASCULAR: S1 and S2 present. No murmurs, rubs, or gallops. PULMONARY: Chest is clear to auscultation, no wheezing or crackles. ABDOMEN: Soft, nontender, nondistended, normoactive bowel sounds. No palpable organomegaly. MUSCULOSKELETAL: No joint swelling or deformity. EXTREMITIES: No cyanosis, clubbing, or pedal edema. NEUROLOGICAL: Gross neurological examination did not reveal any focal deficits. SKIN: No rashes. Assessment and plan -Chest pain possibility of non-ST elevation VT: Cardiology evaluated the patient second septal troponin is slightly elevated patient is on IV heparin which should be continued -Possible essential hypertension patient blood pressures are very high patient was started on losartan and as needed hydralazine. -Gastroesophageal reflux disease -Hypothyroidism DVT prophylaxis: On IV heparin at this time Past Medical History Past Medical History: GERD/Reflux, Thyroid Disorder Additional Past Medical History / Comment(s): HAD COVID IN 2020. DIVERTICULITIS. GOUTT History of Any Multi-Drug Resistant Organisms: MRSA Date of last positivie culture/infection: 05/30/18 MDRO Source:: RIGHT LEG Past Surgical History: Hernia Repair Additional Past Surgical History / Comment(s): bilateral ing hernia (EACH AT DIFFERENT TIMES) Past Anesthesia/Blood Transfusion Reactions: No Reported Reaction Past Psychological History: No Psychological Hx Reported Smoking Status: Never smoker Past Alcohol Use History: Occasional Past Drug Use History: None Reported Medications and Allergies Home Medications Medication Instructions Recorded Confirmed Type Levothyroxine Sodium [Synthroid] 175 mcg PO DAILY 08/14/19 10/19/23 History [place]-3 Fatty Acids/Fish Oil [Fish 1 cap PO DAILY 06/27/21 10/19/23 History Oil 1,000 mg Softgel] Aspirin EC [Ecotrin Low Dose] 81 mg PO DAILY 10/19/23 10/19/23 History Omeprazole [PriLOSEC] 20 mg PO DAILY 10/19/23 10/19/23 History Allergies Allergy/AdvReac Type Severity Reaction Status Date / Time No Known Allergies Allergy Verified 10/19/23 07:13 Physical Exam Vitals: Vital Signs Temp Pulse Resp BP Pulse Ox 10/19/23 07:10 50 L 16 150/106 100 10/19/23 06:28 56 L 16 177/115 100 10/19/23 04:40 97.8 F 57 L 18 187/119 97 Intake and Output 10/18/23 10/19/23 10/19/23 22:59 06:59 14:59 Other: Voiding Method Toilet Urinal Weight 83.915 kg Results CBC & Chem 7: 10/19/23 08:20 10/19/23 04:51 Labs: Abnormal Lab Results - Last 24 Hours (Table) 10/19/23 10/19/23 Range/Units 04:51 08:20 Total Bilirubin 1.4 H (0.2-1.3) mg/dL Troponin I 0.058 H* (0.000-0.034) ng/mL
[2023-10-19] MEDS: LEVOTHYROXINE 88 MCG TAB PO SCH (13:49)
[2023-10-19] MEDS: HEPARIN SODIUM 1,000 UN/ML (10ML VL) IV PRN (18:06)
[2023-10-19] MEDS: ACETAMINOPHEN TAB 325 MG TAB PO PRN (20:16)
[2023-10-20] MEDS: PANTOPRAZOLE 40 MG TABLET PO SCH (06:23)
--- NOTE | 2023-10-20 07:23 | CA ---
Transthoracic Echo Report Name: Wagner Wallace Age: 67 Gender: M : 1955 Exam Date: 10/19/2023 09:31 Exam Location: [place] [facility] Ht (in): 70 Wt (lb): 185 Ordering Physician: Jackson Phillips DO Attending/Referring Phys: [id number], Jacqueline Financial Reporting Consultant Marcella Alan RDCS Procedure CPT: Indications: CP Cardiac Hx: Technical Quality: Good Contrast 1: Total Dose (mL): Contrast 2: Total Dose (mL): MEASUREMENTS (Male / Female) Normal Values 2D ECHO LV Diastolic Diameter PLAX 5.3 cm 4.2 - 5.9 / 3.9 - 5.3 cm LV Systolic Diameter PLAX 4.0 cm IVS Diastolic Thickness 1.1 cm 0.6 - 1.0 / 0.6 - 0.9 cm LVPW Diastolic Thickness 1.1 cm 0.6 - 1.0 / 0.6 - 0.9 cm LV Relative Wall Thickness 0.4 RV Internal Dim ED PLAX 3.3 cm LVOT Diameter 2.3 cm Aortic Root Diameter 3.9 cm LV Diastolic Volume MOD BP 140.4 cm??? 67 - 155 / 56 - 104 cm??? LV Systolic Volume MOD BP 53.3 cm??? 22 - 58 / 19 - 49 cm??? LV Ejection Fraction MOD BP 62.0 % >= 55 % LV Cardiac Index MOD BP 2167.0 cm???/min???m??? LV Diastolic Volume MOD 4C 154.1 cm??? LV Systolic Volume MOD 4C 53.6 cm??? LV Ejection Fraction MOD 4C 65.2 % LV Cardiac Index MOD 4C 2502.3 cm???/min???m??? LV Diastolic Length 4C 8.8 cm LV Systolic Length 4C 7.1 cm LV Diastolic Volume MOD 2C 122.6 cm??? LV Systolic Volume MOD 2C 53.2 cm??? LV Ejection Fraction MOD 2C 56.6 % LV Cardiac Index MOD 2C 1728.8 cm???/min???m??? LV Diastolic Length 2C 8.4 cm LV Systolic Length 2C 7.1 cm Ascending Aorta Diameter 4.1 cm DOPPLER AV Peak Velocity 121.1 cm/s AV Peak Gradient 5.9 mmHg AV Mean Velocity 83.7 cm/s AV Mean Gradient 3.1 mmHg AV Velocity Time Integral 28.0 cm LVOT Peak Velocity 90.5 cm/s LVOT Peak Gradient 3.3 mmHg LVOT Velocity Time Integral 21.1 cm LVOT Stroke Volume 87.9 cm??? LVOT Stroke Volume Index 43.6 ml/m??? LVOT Cardiac Index 2189.3 cm???/min???m??? AV Area Cont Eq vti 3.1 cm??? AV Area Cont Eq pk 3.1 cm??? Mitral E Point Velocity 49.6 cm/s Mitral A Point Velocity 81.9 cm/s Mitral E to A Ratio 0.6 MV Deceleration Time 224.0 ms MV E' Velocity 4.9 cm/s Mitral E to MV E' Ratio 10.2 PV Peak Velocity 79.3 cm/s PV Peak Gradient 2.5 mmHg FINDINGS Left Ventricle Left ventricular ejection fraction is estimated at 55-60 %. Mildly increased septal wall thickness. Left ventricular cavity size normal. No obvious regional wall motion abnormalities. Right Ventricle Borderline enlarged right ventricle with normal function. Unable to estimate the right ventricular systolic pressure. Right Atrium Mild right atrial dilatation. Left Atrium Mild left atrial dilatation. Mitral Valve Mitral valve thickened. No evidence for mitral valve prolapse. No mitral regurgitation. [id number] mitral regurgitation. Aortic Valve Trileaflet aortic valve. No aortic valve stenosis or regurgitation. Tricuspid Valve Structurally normal tricuspid valve. No tricuspid stenosis. Trace tricuspid regurgitation. Pulmonic Valve Structurally normal pulmonic valve. No pulmonic stenosis. Mild pulmonic regurgitation. Pericardium No pericardial effusion. Aorta Aortic annulus normal. Ascending aorta mildly enlarged. CONCLUSIONS Normal LV systolic function. The ejection fraction is 55-60% Dilated RV with normal function [id number] mitral regurgitation Previewed by: Dr. Jacinto Hernandez MD (Electronically Signed) Final Date: 20 Oct 2023 07:22
[2023-10-20] MEDS: ASPIRIN 325 MG TAB PO SCH (08:56)
[2023-10-20 11:25] LABS: Mean Platelet Volume 8.5; Platelet Count 246 k/uL (150-450)
--- NOTE | 2023-10-20 14:05 | P.PN ---
Subjective Progress Note Date: 10/20/23 Chief complaint: Chest pain History of present illness: The patient is a pleasant 67-year-old gentleman with no significant past medical history who presented to the emergency department complaining of chest discomfort. He was in his usual state of health till yesterday when he woke up from sleep complaining of discomfort in the middle of the chest as a pressure on the chest with no radiation into the arms or neck or shoulders or back and no associated symptoms of shortness of breath or sweating or dizziness or lightheadedness or any feeling of heart racing or fluttering or presyncope or syncope. The discomfort lasted for about 30 minutes and resolved completely after that. He presented for further evaluation. He underwent an EKG which revealed normal sinus mechanism with sinus bradycardia no ischemic ST or T wave abnormalities. First set of troponin came in to be unremarkable. The rest of the blood work including CBC and BMP came in to be unremarkable as well. Please note that his pressure has been elevated and consistent with stage II hypertension but the patient is not aware of any history of hypertension and he does not take any medications at home for hypertension or dyslipidemia and he has no history of coronary artery disease or heart failure or cardiac arrhythmia and never seen any automotive service director before. He does have significant family history with a father who has coronary artery disease at a early stage in his life. The examination is remarkable for regular rhythm with a systolic murmur and clear breathing sounds bilaterally and no carotid bruit and no edema was noted 10/19 Patient is seen today in follow-up. Blood pressure readings are improved at 142/86, heart rate between 48 and 55. Pulse ox 97% on room air. Repeat troponins are 0.058 and 0.079. Chest x-ray reveals no acute process. Echocardiogram reveals normal LV systolic function, EF 55 to 60%. Dilated RV with normal function. Mild to moderate mitral regurgitation. Patient has been continued on a heparin drip. Dr. Holden discussed in detail with the patient the options of stress testing versus cardiac catheterization including risk and benefits of both. Patient has agreed to stay for stress test tomorrow. Physical Examination Gen: This is a 67-year-old male in no acute distress HEENT: Head is atraumatic, normocephalic. Pupils equal, round. Sclerae is anicteric. LUNGS: Clear to auscultation. No wheezes or rhonchi. No intercostal retractions. HEART: Regular rate and rhythm. Systolic murmur. EXTREMITIES: No pedal edema. No calf tenderness. NEUROLOGICAL: Patient is awake, alert and oriented x3. Assessment Chest discomfort Hypertension emergency could be the etiology for the chest discomfort Significant family history of coronary artery disease Plan Ruled out acute coronary event Continue patient on losartan/hydrochlorothiazide Discontinue heparin drip Schedule patient for stress echocardiogram tomorrow Follow-up with the patient Nurse practitioner note has been reviewed, I agree with documented findings and plan of care. Patient was seen and examined. Objective - Vital Signs Vital signs: Vital Signs Temp 97.8 F 10/20/23 08:27 Pulse 48 L 10/20/23 12:00 Resp 16 10/20/23 12:00 BP 142/86 10/20/23 12:00 Pulse Ox 97 10/20/23 12:00 FiO2 Intake & Output 10/19/23 10/20/23 10/20/23 18:59 06:59 18:59 Intake Total 65 169.41 Output Total 300 Balance -235 169.41 Weight 83.915 kg Intake: Intake, IV Titration 65 169.41 Amount Heparin Sod,Pork in 0.45% 65 169.41 NaCl 25,000 unit In 0.45 % NaCl 1 250ml.bag @ 11. 917 UNITS/KG/HR 10 mls/hr IV .Q24H AYUSH Rx#: [id number] Output: Urine 300 Other: Voiding Method Toilet Toilet Urinal Urinal # Voids 2 2 - Labs CBC & Chem 7: 10/20/23 09:30 10/19/23 04:51 Labs: Abnormal Lab Results - Last 24 Hours (Table) 10/19/23 10/19/23 Range/Units 17:09 22:51 APTT 33.5 H 64.7 H (22.0-30.0) sec
--- NOTE | 2023-10-20 14:58 | P.PN ---
Subjective Progress Note Date: 10/20/23 62-year-old male came in with complaints of chest pressure-like sensation in the middle of the chest without any radiation lasted for half an hour denies any lightheadedness or diaphoresis, EKG was sinus bradycardia without any ST-T wave changes first troponin was negative second troponin slightly elevated to 0.058 patient had similar symptoms couple days ago was seen in ER 3 sets of troponins were negative patient was subsequently discharged to get an outpatient stress test. Patient has significant family history of heart disease in father who had myocardial infarction at age 68. Patient does not smoke does not have hypertension, hyperlipidemia or diabetes mellitus. Patient has hypothyroidism. 10/20/2023 \Patient is evaluated today in follow-up continues to report for mild pressure- like sensation in the mid chest. He has been started on IV heparin and troponin level unwrap 0.09. Cardiology recommending stress echo in the morning. Patient also has been started on Hyzaar for elevated blood pressure has improved 140s over 80s. Echocardiogram reveals an EF of 55 to 60% with normal LV systolic function mild to moderate mitral vegetation and dilated RV with normal function. Review of Systems Constitutional: Denied any fatigue denied any fever. Cardio vascular: denied any chest pain, palpitations Gastrointestinal: denied any nausea, vomiting, diarrhea Pulmonary: Denied any shortness of breath cough Neurologic denied any new focal deficits All inpatient medications were reviewed and appropriate changes in these medications as dictated in the interval history and assessment and plan. PHYSICAL EXAMINATION: GENERAL: The patient is alert and oriented x3, not in any acute distress. Well developed, well nourished. HEENT: Pupils are round and equally reacting to light. EOMI. No scleral icterus. No conjunctival pallor. Normocephalic, atraumatic. No pharyngeal erythema. No t hyromegaly. CARDIOVASCULAR: S1 and S2 present. No murmurs, rubs, or gallops. PULMONARY: Chest is clear to auscultation, no wheezing or crackles. ABDOMEN: Soft, nontender, nondistended, normoactive bowel sounds. No palpable organomegaly. MUSCULOSKELETAL: No joint swelling or deformity. EXTREMITIES: No cyanosis, clubbing, or pedal edema. NEUROLOGICAL: Gross neurological examination did not reveal any focal deficits. SKIN: No rashes. Assessment and plan -Chest pain possibility of non-ST elevation [place]: troponin levels are elevated and cardiology recommending stress test tomorrow. IV heparin discontinued. -Possible essential hypertension patient blood pressures are very high patient was started on losartan and as needed hydralazine. Uncontrolled hypertension could be the reason for the chest pain. -Gastroesophageal reflux disease -Hypothyroidism -Family history of coronary artery disease The impression and plan of care has been dictated by Lucero Cespedes Nurse Practitioner as directed. Dr. Bindu MD I have performed a history and physical examination and medical decision making of this patient, discussed the same with the dictator, and agree with the dictators assessment and plan as written, documented as a scribe. Based on total visit time, I have performed more than 50% of this visit. Objective - Vital Signs Vital signs: Vital Signs Temp 97.8 F 10/20/23 08:27 Pulse 48 L 10/20/23 12:00 Resp 16 10/20/23 12:00 BP 142/86 10/20/23 12:00 Pulse Ox 97 10/20/23 12:00 FiO2 Intake & Output 10/19/23 10/20/23 10/20/23 18:59 06:59 18:59 Intake Total 65 169.41 Output Total 300 Balance -235 169.41 Weight 83.915 kg Intake: Intake, IV Titration 65 169.41 Amount Heparin Sod,Pork in 0.45% 65 169.41 NaCl 25,000 unit In 0.45 % NaCl 1 250ml.bag @ 11. 917 UNITS/KG/HR 10 mls/hr IV .Q24H [facility] Rx#: [id number] Output: Urine 300 Other: Voiding Method Toilet Toilet Urinal Urinal # Voids 2 2 - Labs CBC & Chem 7: 10/20/23 09:30 10/19/23 04:51 Labs: Abnormal Lab Results - Last 24 Hours (Table) 10/19/23 10/19/23 Range/Units 17:09 22:51 APTT 33.5 H 64.7 H (22.0-30.0) sec Assessment and Plan Time with Patient: Less than 30
[2023-10-20 15:37] LABS: Chol/HDL Ratio 3.75 Ratio; LDL Cholesterol,Calculated 115.2 mg/dL (0.0-131.0); VLDL Calculation 19.04 mg/dL (5.00-40.00)
[2023-10-20] MEDS: HEPARIN SODIUM,PORCINE 5,000 UNIT/ML 1 ML VIAL SQ SCH (20:45)
--- NOTE | 2023-10-21 12:51 | CA ---
Stress Echo Report Wagner Wallace Age: 67 Gender: M : 1955 Exam Date: 10/21/2023 12:09 Exam Location: [facility] Ht (in): 60 Wt (lb): 185 Ordering Physician: Kanika Astudillo Referring Physician: [id number] Food Critic: Sofia Loaiza RDCS Technologist Procedure CPT: Indication: Chest Pain ICD-9 Codes: Rhythm: Patient History: CP, HTN, FAMILY HX Cardiac Medications: SEE CHART Medications in past 24 hours: Contrast: Stress Results Protocol: Mendel Total dose(mL): Exercise Duration (min:sec): Max ST Depression (mm): Angina Score: Ballard Score: METS: 10.3 Resting HR: 73 Resting BP: 118 / 81 Peak HR: 149 Peak BP: 182 / 96 Max Predicted HR: 155 96 % Max Predicted HR Target HR: 132 Double Product: [id number] Stress Summary: BP Response: Reason for Termination: Reached target heart rate or work-load Cardiac Symptoms: PRESSURE IN SHOULDERS, CHEST PAIN AT END OF EXERCISE THAT SUBSIDED WITH REST, SEVERE DYSPNEA ECG Analysis Resting ECG: Stress ECG: Arrhythmia: Echo Analysis Resting Echo: Peak Echo Analysis: MEASUREMENTS (Male/Female) Normal Values CONCLUSIONS Excellent exercise tolerance Abnormal EKG response to exercise with evidence of ST changes concerning for ischemia Cannot rule out basal lateral hypokinesia on the echo. The basal lateral wall was not well seen Overall abnormal stress echo Dr. Jacinto Hernandez MD (Electronically Signed) Final Date: 21 Oct 2023 12:50
[2023-10-21] MEDS ORDERED: NITROGLYCERIN SL TABS 0.4 MG TAB SUBLINGUAL PRN (13:33)
[2023-10-21] MEDS ORDERED: ALPRAZolam 0.5 MG TAB PO PRN (13:33)
[2023-10-21] MEDS: ASPIRIN 325 MG TAB PO STA (14:55)
[2023-10-21] MEDS: ATORVASTATIN 80 MG TAB PO STA (14:55)
[2023-10-21] MEDS: SODIUM CHLORIDE 0.9% 1,000 ML in EMPTY BAG 1 BAG IV SCH (16:15)
[2023-10-21] MEDS ORDERED: VERAPAMIL 2.5 MG/ML 2 ML AMP ONE (19:15)
[2023-10-21] MEDS ORDERED: fentaNYL (PF) 50 MCG/ML 2 ML AMP ONE (19:19)
[2023-10-21] MEDS: MIDAZOLAM 2 MG/2 ML VIAL IVP ONE ×2 (19:42→19:52)
[2023-10-21] MEDS: fentaNYL (PF) 50 MCG/1 ML VIAL IVP ONE ×3 (19:42→20:21)
[2023-10-21] MEDS: HEPARIN SODIUM 1,000 UN/ML (10ML VL) IVP ONE ×2 (19:50→20:21)
[2023-10-21] MEDS ORDERED: niCARdipine 25 MG/10 ML VIAL ONE (20:19)
[2023-10-21] MEDS: IOPAMIDOL-370 100ML BTL INTRATHECA ONE (20:33)
[2023-10-21] MEDS: SODIUM CHLORIDE 0.9% 1,000 ML IV ONE (20:34)
[2023-10-21] MEDS ORDERED: RX INFO: IV CONTRAST WAS GIVEN 1 EACH MISC MISCELLANE PRN (20:40)
--- NOTE | 2023-10-21 20:48 | P.PCN ---
Date of Procedure: 10/21/23 Operative Findings: CARDIAC CATHETERIZATION PERFORMING PHYSICIAN: Jacinto Hernandez MD, RPVI PROCEDURE PERFORMED: 1. Selective right and left coronary angiogram 2. Left heart catheterization 3. IFR of the LAD and LCx 4. Ultrasound-guided access of the right radial artery INDICATION: Chest discomfort and abnormal stress echocardiogram with evidence of basal lateral ischemia COMPLICATION: None APPROACH: Right radial artery LEVEL OF SEDATION: Moderate with a sedation length of 40 minutes PROCEDURE DESCRIPTION: After obtaining an informed consent, the patient was brought to cardiac manufacturing laborer. Local anesthesia was performed using lidocaine subcutaneously. The right radial artery was cannulated using Seldinger technique, the guidewire passed easily, following that we advanced a 5-Zimbabwean sheath dilator assembly, the wire and dilator were removed and sheath was flushed. Following that, 2 mg of verapamil along with 5000 unit heparin were given. Selective right and left coronary angiogram using a 5-Zimbabwean JR4 and JL 3.5 catheters. Following that we did left heart catheterization using the JR4 catheter which crossed the aortic valve then I did pullback across the valve After that we decided to do an FFR of the LAD and LCx. After zeroing the Doppler wire and equalizing between the Doppler wire and guiding catheter the left main was engaged and subsequently the LAD was wired. We did an IFR of the LAD and that came in to be at 0.96. Subsequently the wire was advanced toward the left circumflex in the AV groove and also I did an IFR and that came in to be at 1.0. The procedure was completed there was no complication. SELECTIVE CORONARY ANGIOGRAM: The right coronary artery: Large-caliber vessel and a dominant vessel and appears to have mild to moderate disease on Left main: Angiographically normal The left circumflex: Large-caliber vessel nondominant vessel. The proximal LCx gives rise into an OM1 which is about 2.5 to 3 mm diameter with critical ostial lesion appears to be in the range of 99.9%. The left circumflex after that in the proximal has intermediate lesion appears to be nonflow limiting by Doppler wire The left anterior descending artery: The proximal LAD has also intermediate lesion appears to be nonflow limiting by Doppler wire with the mid LAD and distal LAD appeared to be angiographically normal HEMODYNAMICS: LVEDP was 11 mmHg with no significant gradient across aortic valve CONCLUSION: 1. Intermediate disease involving the proximal LAD documented to be nonflow limiting by Doppler wire 2. Intermediate disease involving the proximal LCx appears to be nonflow limiting by Doppler wire. Critical disease involving the ostial of the first obtuse marginal branch. POSTPROCEDURE MANAGEMENT: Consider medical treatment at this point. Starting the patient on beta-catrina as well as oral nitrate Consider PCI of OM1 if the patient remains symptomatic in spite of maximized medical treatment
[2023-10-21] MEDS ORDERED: HEPARIN SODIUM 1,000 UN/ML (10ML VL) IV PRN (21:01)
[2023-10-21] MEDS: HEPARIN SOD,PORK IN 0.45% NACL 25,000 UNIT in 0.45% NACL 1 250ML.BAG IV SCH (21:13)
[2023-10-21] MEDS: NITROGLYCERIN-D5W PMX 50 MG in DEXTROSE/WATER 1 250ML.BAG IV SCH (21:20)
[2023-10-21] MEDS: SODIUM CHLORIDE 0.9% 1,000 ML IV SCH (21:29)
--- NOTE | 2023-10-21 22:18 | P.PN ---
Subjective Progress Note Date: 10/21/23 62-year-old male came in with complaints of chest pressure-like sensation in the middle of the chest without any radiation lasted for half an hour denies any lightheadedness or diaphoresis, EKG was sinus bradycardia without any ST-T wave changes first troponin was negative second troponin slightly elevated to 0.058 patient had similar symptoms couple days ago was seen in ER 3 sets of troponins were negative patient was subsequently discharged to get an outpatient stress test. Patient has significant family history of heart disease in father who had myocardial infarction at age 68. Patient does not smoke does not have hypertension, hyperlipidemia or diabetes mellitus. Patient has hypothyroidism. 10/20/2023 \Patient is evaluated today in follow-up continues to report for mild pressure- like sensation in the mid chest. He has been started on IV heparin and troponin level unwrap 0.09. Cardiology recommending stress echo in the morning. Patient also has been started on Hyzaar for elevated blood pressure has improved 140s over 80s. Echocardiogram reveals an EF of 55 to 60% with normal LV systolic function mild to moderate mitral vegetation and dilated RV with normal function. 10/21/2023 Patient is evaluated today underwent stress echo with positive results. Has been resumed on IV heparin. Scheduled to undergo cardiac catheterization today. Review of Systems Constitutional: Denied any fatigue denied any fever. Cardio vascular: denied any chest pain, palpitations Gastrointestinal: denied any nausea, vomiting, diarrhea Pulmonary: Denied any shortness of breath cough Neurologic denied any new focal deficits All inpatient medications were reviewed and appropriate changes in these medications as dictated in the interval history and assessment and plan. PHYSICAL EXAMINATION: GENERAL: The patient is alert and oriented x3, not in any acute distress. Well developed, well nourished. HEENT: Pupils are round and equally reacting to light. EOMI. No scleral icterus. No conjunctival pallor. Normocephalic, atraumatic. No pharyngeal erythema. No thyromegaly. CARDIOVASCULAR: S1 and S2 present. No murmurs, rubs, or gallops. PULMONARY: Chest is clear to auscultation, no wheezing or crackles. ABDOMEN: Soft, nontender, nondistended, normoactive bowel sounds. No palpable organomegaly. MUSCULOSKELETAL: No joint swelling or deformity. EXTREMITIES: No cyanosis, clubbing, or pedal edema. NEUROLOGICAL: Gross neurological examination did not reveal any focal deficits. SKIN: No rashes. Assessment and plan -Chest pain possibility of non-ST elevation [place]: troponin levels are elevated had positive stress test and pending cardiac catheterization. -Possible essential hypertension patient blood pressures are very high patient was started on losartan and as needed hydralazine. BP has improved. -Gastroesophageal reflux disease -Hypothyroidism -Family history of coronary artery disease GI prophylaxis DVT prophylaxis on IV heparin Full Code The impression and plan of care has been dictated by Lucero Cespedes Nurse Practitioner as directed. Dr. Bindu MD I have performed a history and physical examination and medical decision making of this patient, discussed the same with the dictator, and agree with the dictators assessment and plan as written, documented as a scribe. Based on total visit time, I have performed more than 50% of this visit. Objective - Vital Signs Vital signs: Vital Signs Temp 98 F 10/21/23 20:46 Pulse 61 10/21/23 22:08 Resp 18 10/21/23 22:08 BP 138/86 10/21/23 22:08 Pulse Ox 97 10/21/23 22:08 FiO2 Intake & Output 10/21/23 10/21/23 10/22/23 06:59 18:59 06:59 Intake Total 240 120 300 Balance 240 120 300 Intake: IV 300 Oral 240 120 Other: Voiding Method Toilet Toilet Urinal Urinal # Voids 2 2 - Labs CBC & Chem 7: 10/20/23 09:30 10/19/23 04:51 Assessment and Plan Time with Patient: Less than 30
[2023-10-22] MEDS ORDERED: HEPARIN SODIUM,PORCINE (1 ML) 2,500 UNIT in SODIUM CHLORIDE 0.9% 250 ML IRRIGATION PRN (07:00)
[2023-10-22] MEDS ORDERED: HEPARIN SODIUM,PORCINE 10,000 UNIT in SODIUM CHLORIDE 0.9% 1,000 ML IRRIGATION PRN (07:00)
[2023-10-22] MEDS: METOPROLOL SUCCINATE (ER) 25 MG TAB.ER.24H PO SCH (08:44)
[2023-10-22] MEDS ORDERED: ISOSORBIDE MONONITRATE ER 30 MG TAB.ER.24H PO SCH (09:00)
[2023-10-22] MEDS: CLOPIDOGREL 75 MG TAB PO STA (09:29)
[2023-10-22] MEDS: ISOSORBIDE MONONITRATE ER 30 MG TAB.ER.24H PO SCH (10:18)
[2023-10-22] MEDS ORDERED: NITROGLYCERIN SL TABS 0.4 MG TAB SUBLINGUAL PRN (11:31)
[2023-10-22] MEDS ORDERED: ALPRAZolam 0.25 MG TAB PO PRN (11:31)
[2023-10-22] MEDS ORDERED: ALPRAZolam 0.5 MG TAB PO PRN (11:31)
[2023-10-22] MEDS: MAG HYDROX/AL HYDROX/SIMETH 30 ML, HYOSCYAMINE ELIXIR 10 ML, LIDOCAINE VISCOUS 10 ML PO ONE (12:09)
[2023-10-22] MEDS: IV FLUID CONTINUATION 1,000 ML IV ONE (12:30)
[2023-10-22] MEDS ORDERED: LIDOCAINE 1% INJ 10MG/ML (20 ML MDV) ONE (12:37)
[2023-10-22] MEDS: MIDAZOLAM 2 MG/2 ML VIAL IVP ONE (12:46)
[2023-10-22] MEDS: LIDOCAINE 1% INJ 10MG/ML (20 ML MDV) SQ ONE (12:47)
[2023-10-22] MEDS: HEPARIN SODIUM 1,000 UN/ML (10ML VL) IVP ONE (12:50)
--- NOTE | 2023-10-22 13:03 | P.PN ---
Subjective Progress Note Date: 10/22/23 Chief complaint: Chest pain History of present illness: The patient is a pleasant 67-year-old gentleman with no significant past medical history who presented to the emergency department complaining of chest discomfort. He was in his usual state of health till yesterday when he woke up from sleep complaining of discomfort in the middle of the chest as a pressure on the chest with no radiation into the arms or neck or shoulders or back and no associated symptoms of shortness of breath or sweating or dizziness or lightheadedness or any feeling of heart racing or fluttering or presyncope or syncope. The discomfort lasted for about 30 minutes and resolved completely after that. He presented for further evaluation. He underwent an EKG which revealed normal sinus mechanism with sinus bradycardia no ischemic ST or T wave abnormalities. First set of troponin came in to be unremarkable. The rest of the blood work including CBC and BMP came in to be unremarkable as well. Please note that his pressure has been elevated and consistent with stage II hypertension but the patient is not aware of any history of hypertension and he does not take any medications at home for hypertension or dyslipidemia and he has no history of coronary artery disease or heart failure or cardiac arrhythmia and never seen any record press tender before. He does have significant family history with a father who has coronary artery disease at a early stage in his life. The examination is remarkable for regular rhythm with a systolic murmur and clear breathing sounds bilaterally and no carotid bruit and no edema was noted 10/19 Patient is seen today in follow-up. Blood pressure readings are improved at 142/86, heart rate between 48 and 55. Pulse ox 97% on room air. Repeat troponins are 0.058 and 0.079. Chest x-ray reveals no acute process. Echocardiogram reveals normal LV systolic function, EF 55 to 60%. Dilated RV with normal function. Mild to moderate mitral regurgitation. Patient has been continued on a heparin drip. Dr. Holden discussed in detail with the patient the options of stress testing versus cardiac catheterization including risk and benefits of both. Patient has agreed to stay for stress test tomorrow. 10/21 Yesterday, patient underwent cardiac catheterization with Dr. Hernandez which revealed intermediate disease involving the proximal LAD documented to be nonflow limiting by Doppler wire. Intermediate disease involving the proximal left circumflex appears to be nonflow limiting by Doppler wire. Critical disease involving the ostial of the first obtuse marginal branch. Plan was to try medical management. Patient was started on Imdur 30 mg daily and Plavix 75 mg daily. Patient is a has ambulated in the hallway and denies any shortness of breath but he is complaining of a burning type epigastric pain. Patient is quit e adamant that he wants aggressive treatment done for the coronary artery disease. And we will plan that patient will go back to [facility] for PT[facility] today Physical Examination Gen: This is a 67-year-old male in no acute distress HEENT: Head is atraumatic, normocephalic. Pupils equal, round. Sclerae is anicteric. LUNGS: Clear to auscultation. No wheezes or rhonchi. No intercostal retractions. HEART: Regular rate and rhythm. Systolic murmur. EXTREMITIES: No pedal edema. No calf tenderness. NEUROLOGICAL: Patient is awake, alert and oriented x3. Assessment Coronary artery disease of the ostial of the first obtuse marginal branch Hypertension emergency could be the etiology for the chest discomfort Significant family history of coronary artery disease Plan Patient has been started on Imdur 30 mg daily which will be continued Continue patient on Plavix 75 mg daily, aspirin 81 mg daily, atorvastatin 80 mg daily, Toprol-XL 12.5 mg daily Patient is scheduled for PTCA today with Dr. Hernandez Further recommendations as patient progresses. Nurse practitioner note has been reviewed, I agree with documented findings and plan of care. Patient was seen and examined. Objective - Vital Signs Vital signs: Vital Signs Temp 98 F 10/22/23 08:40 Pulse 58 L 10/22/23 08:40 Resp 18 10/22/23 08:40 BP 128/82 10/22/23 08:40 Pulse Ox 97 10/22/23 08:40 FiO2 Intake & Output 10/21/23 10/22/23 10/22/23 18:59 06:59 18:59 Intake Total 120 300 Balance 120 300 Weight 74 kg Intake: IV 300 Oral 120 Other: Voiding Method Toilet Toilet Toilet Urinal Urinal Urinal # Voids 2 - Labs CBC & Chem 7: 10/20/23 09:30 10/19/23 04:51 Labs: Abnormal Lab Results - Last 24 Hours (Table) 10/22/23 Range/Units 03:22 APTT 44.5 H (22.0-30.0) sec
[2023-10-22] MEDS ORDERED: MORPHINE SULFATE 4 MG/ML SYRINGE ONE ×2 (13:06→14:28)
[2023-10-22] MEDS ORDERED: niCARdipine 25 MG/10 ML VIAL ONE (13:07)
[2023-10-22] MEDS: MORPHINE SULFATE 4 MG/ML SYRINGE IVP ONE ×3 (13:13→14:46)
[2023-10-22] MEDS: NITROGLYCERIN 1000MCG/10ML SYRINGE INTRACORON ONE (13:16)
[2023-10-22] MEDS: niCARdipine Syringe (1,000 mcg/10 mL) INTRACORON ONE (13:17)
[2023-10-22] MEDS: PHENYLEPHRINE-0.9% NACL SYG 1,000 MCG/10 ML SYRINGE IVP ONE (14:26)
[2023-10-22] MEDS: IOPAMIDOL-370 200ML BTL INJ ONE ×2 (14:34→14:57)
[2023-10-22] MEDS: SODIUM CHLORIDE 0.9% 1,000 ML IV ONE (14:35)
[2023-10-22] MEDS ORDERED: hydrALAZINE HCL 20 MG/ML 1 ML VIAL ONE (14:39)
[2023-10-22] MEDS ORDERED: ENALAPRILAT 1.25 MG/ML 1 ML VIAL ONE (14:39)
[2023-10-22] MEDS: hydrALAZINE HCL 20 MG/ML 1 ML VIAL IVP ONE (14:42)
[2023-10-22] MEDS: ENALAPRILAT 1.25 MG/ML 1 ML VIAL IVP ONE (14:42)
[2023-10-22] MEDS ORDERED: RX INFO: IV CONTRAST WAS GIVEN 1 EACH MISC MISCELLANE PRN (14:44)
[2023-10-22] MEDS ORDERED: NITROGLYCERIN SL TABS 0.4 MG TAB SUBLINGUAL ONE (14:56)
[2023-10-22] MEDS: NITROGLYCERIN SL TABS 0.4 MG TAB SUBLINGUAL ONE (14:57)
--- NOTE | 2023-10-22 15:23 | P.PN ---
Subjective Progress Note Date: 10/22/23 62-year-old male came in with complaints of chest pressure-like sensation in the middle of the chest without any radiation lasted for half an hour denies any lightheadedness or diaphoresis, EKG was sinus bradycardia without any ST-T wave changes first troponin was negative second troponin slightly elevated to 0.058 patient had similar symptoms couple days ago was seen in ER 3 sets of troponins were negative patient was subsequently discharged to get an outpatient stress test. Patient has significant family history of heart disease in father who had myocardial infarction at age 68. Patient does not smoke does not have hypertension, hyperlipidemia or diabetes mellitus. Patient has hypothyroidism. Patient has been started on Imdur 30 mg daily which will be continued Continue patient on Plavix 75 mg daily, aspirin 81 mg daily, atorvastatin 80 mg daily, Toprol-XL 12.5 mg daily Patient is scheduled for PTCA today with Dr. Hernandez Objective - Vital Signs Vital signs: Vital Signs Temp 98.1 F 10/22/23 03:18 Pulse 49 L 10/22/23 03:18 Resp 14 10/22/23 03:18 BP 133/77 10/22/23 03:18 Pulse Ox 94 L 10/22/23 03:18 FiO2 Intake & Output 10/21/23 10/22/23 10/22/23 18:59 06:59 18:59 Intake Total 120 300 Balance 120 300 Weight 74 kg Intake: IV 300 Oral 120 Other: Voiding Method Toilet Toilet Urinal Urinal # Voids 2 - Exam GENERAL: The patient is alert and oriented x3, not in any acute distress. Well developed, well nourished. HEENT: Pupils are round and equally reacting to light. EOMI. No scleral icterus. No conjunctival pallor. Normocephalic, atraumatic. No pharyngeal erythema. No thyromegaly. CARDIOVASCULAR: S1 and S2 present. No murmurs, rubs, or gallops. PULMONARY: Chest is clear to auscultation, no wheezing or crackles. ABDOMEN: Soft, nontender, nondistended, normoactive bowel sounds. No palpable organomegaly. MUSCULOSKELETAL: No joint swelling or deformity. EXTREMITIES: No cyanosis, clubbing, or pedal edema. NEUROLOGICAL: Gross neurological examination did not reveal any focal deficits. SKIN: No rashes - Labs CBC & Chem 7: 10/20/23 09:30 10/19/23 04:51 Labs: Abnormal Lab Results - Last 24 Hours (Table) 10/22/23 Range/Units 03:22 APTT 44.5 H (22.0-30.0) sec Assessment and Plan Assessment: -Chest pain possibility of non-ST elevation [place]: troponin levels are elevated had positive stress test and pending cardiac catheterization. -Possible essential hypertension patient blood pressures are very high patient was started on losartan and as needed hydralazine. BP has improved. -Gastroesophageal reflux disease -Hypothyroidism -Family history of coronary artery disease GI prophylaxis DVT prophylaxis on IV heparin Full Code
[2023-10-22] MEDS: ALPRAZolam 0.25 MG TAB PO PRN (15:56)
[2023-10-22] MEDS: SODIUM CHLORIDE 0.9% 1,000 ML IV SCH (18:17)
[2023-10-22] MEDS: ATORVASTATIN 80 MG TAB PO STA (18:23)
[2023-10-22] MEDS: ASPIRIN 325 MG TAB PO STA (18:23)
--- NOTE | 2023-10-22 19:23 | P.PCN ---
Date of Procedure: 10/22/23 Operative Findings: PERCUTANEOUS CORONARY INTERVENTION Performing physician Jacinto Hernandez M.D. Procedure Performed: 1. Successful stenting of the OM1 using 3.0 x 15 mm Xience drug-eluting stent with an excellent angiographic results. 2. Adjunctive use of intravascular imaging (IVUS) 3. Selective right common femoral artery angiogram and ultrasound-guided access of the right common femoral artery Indication: The patient is a 67-year-old gentleman who was admitted to the hospital with chest discomfort concerning for angina and underwent stress echocardiogram came in to be abnormal with chest discomfort in response to exercise and abnormal EKG as well as well as abnormal echocardiogram with evidence of basal lateral hypokinesia. He underwent a heart catheterization after that and that revealed critical disease involving the first obtuse marginal branch of the left circumflex and intermediate disease involving the LAD documented to be nonflow limiting by Doppler wire as well as intermediate disease involving the left circumflex also documented to be nonflow limiting by Doppler wire. Initially he was treated medically but because he continues to have chest discomfort PCI was advised. Approach: Right common femoral artery Complications: None Level of Sedation: Moderate with a sedation length of 88 minutes Procedure Discussion: After obtaining informed consent the patient was brought to the cardiac Food Service Director. I chose to go from the right common femoral artery because the need for bigger than 6 Uzbek sheath. The right common femoral artery was cannulated using micropuncture technique under ultrasound guidance and the micropuncture wire passed easily then I placed a 7 Uzbek 11 cm sheath at the right common femoral artery. Anticoagulation was initiated using heparin with continuous ACT monitoring. Subsequently I did engage the left main using JL 4 7 Uzbek guiding catheter. I did wire the first obtuse marginal branch of the left circumflex using a whisper wire. The wire was advanced to the distal portion of the first obtuse marginal branch. Subsequently I did wire the AV groove left circumflex using a run-through wire. After that I did initially balloon angioplasty of the first obtuse marginal branch of left circumflex using initially 2 mm semicompliant balloon and subsequently 3 mm score flex balloon after intravascular ultrasound was performed and showed a diameter of the first obtuse marginal branch around 3 mm. Angiography was performed after that and showed inadequate angiographic results was seen mostly on the TELUGU cranial view. There was some haziness in the ostial left circumflex coronary artery concerning for dissection. At that point I decided to stent the first obtuse marginal branch of the left circumflex. At that point 3.0 x 15 mm stent was advanced over the wire to the first obtuse marginal branch of the left circumflex with adjunctive use of 2.5 mm balloon was advanced to the AV groove left circumflex in attempt to do kissing stent balloon. Unfortunately the balloon in the left circumflex moved forward upon deploying the stent in the first obtuse marginal branch of the left circumflex. Subsequently both the balloon in the left circumflex and the stent balloon from OM1 were removed. At that point I did try advancing 2.5 mm balloon to the left circumflex in the AV groove but the balloon will not cross the proximal left circumflex part of it because of a stent from the first obtuse marginal branch was a somewhat protruding to the left circumflex coronary artery. I was able to advance 2 mm balloon and I did kissing balloon angioplasty of the first obtuse marginal branch and left circumflex using the 2 mm balloon in the left circumflex and subsequently 2.5 mm balloon. I was able to advance the IVUS catheter only to the proximal left circumflex coronary artery but not passing the takeoff of the first obtuse marginal branch. Please note that I had to advance a body wire in the AV groove left circumflex to have more support and was able to advance the 2.5 mm balloon to the AV groove left circumflex when I did kissing balloons of both the left circumflex and first obtuse marginal branch. Please also note that I did do balloon angioplasty of the left circumflex by the takeoff of the first obtuse marginal branch with possible crushing what ever protruding from the stent from the first obtuse marginal branch to the left circumflex using the 2.5 mm balloon before I did cross the first obtuse marginal branch again and did final kissing balloons of the first obtuse marginal branch and left circumflex coronary artery. Final angiogram was performed and showed good angiographic results with intermediate to severe lesion involving the left circumflex distal to the stented segment appears to be unchanged compared to before after the wire was pulled out. After completing the procedure and taking groin shot the patient developed chest discomfort but his pressure was about 200 mmHg and after he was given blood pressure medications as well as emptying the bladder the pressure has improved significantly and the pain has resolved completely. By the end of the procedure the patient was completely chest pain-free. Please also note that the patient was oozing significantly from around the 7 Uzbek sheath throughout the procedure. He continues to ooze in spite of exchanging the sheath from 7 Uzbek to 8 Uzbek. By the end we have good angiographic results with good hemostasis in the groin and the groin was closed using Angio-Seal. The patient tolerated the procedure very well Postprocedure Management: 1. Dual antiplatelet therapy 2. Aggressive cholesterol control 3. Possible PCI of the left circumflex if he continues to be symptomatic
[2023-10-23] MEDS ORDERED: HEPARIN SODIUM,PORCINE 10,000 UNIT in SODIUM CHLORIDE 0.9% 1,000 ML IRRIGATION PRN (07:00)
[2023-10-23] MEDS ORDERED: HEPARIN SODIUM,PORCINE (1 ML) 2,500 UNIT in SODIUM CHLORIDE 0.9% 250 ML IRRIGATION PRN (07:00)
[2023-10-23 08:14] LABS: Basophils % (A) 0 %; Eosinophils # (A) 0.1 k/uL (0-0.7); Eosinophils % (A) 1 %; HCT 40.4 % (39.0-53.0); HGB 13.3 gm/dL (13.0-17.5); Lymphocytes # (A) 1.6 k/uL (1.0-4.8); Lymphocytes % (A) 22 %; MCH 30.7 pg (25.0-35.0); MCHC 32.9 g/dL (31.0-37.0); MCV 93.4 fL (80.0-100.0); Monocytes # (A) 0.6 k/uL (0-1.0); Monocytes % (A) 8 %; Neutrophils % (A) 67 %; Platelet Count 219 k/uL (150-450); RBC 4.33 m/uL (4.30-5.90); RDW 13.1 % (11.5-15.5); WBC 7.4 k/uL (3.8-10.6)
[2023-10-23] MEDS: CLOPIDOGREL 75 MG TAB PO SCH (08:18)
[2023-10-23] MEDS: ASPIRIN 81 MG PO SCH (08:18)
[2023-10-23] MEDS: MORPHINE SULFATE 2 MG/ML SYRINGE IVP STA (08:19)
[2023-10-23 08:21] LABS: African American GFR (CKD) >90 (>60 ml/min/1.73 sqM); Anion Gap 6 mmol/L; Blood Urea Nitrogen 14 mg/dL (9-20); Calcium 8.8 mg/dL (8.4-10.2); Carbon Dioxide 23 mmol/L (22-30); Chloride 109 mmol/L (98-107); Glucose 93 mg/dL (74-99); Non-African American GFR(CKD) 87 (>60 ml/min/1.73 sqM); Potassium 3.9 mmol/L (3.5-5.1); Sodium 138 mmol/L (137-145)
[2023-10-23 11:15] VITALS: PULSE 78; RESP 18; TEMP 97.8
[2023-10-23 12:36] VITALS: BP 111/57
--- NOTE | 2023-10-23 14:39 | P.PN ---
Subjective Progress Note Date: 10/23/23 Chief complaint: Chest pain History of present illness: The patient is a pleasant 67-year-old gentleman with no significant past medical history who presented to the emergency department complaining of chest discomfort. He was in his usual state of health till yesterday when he woke up from sleep complaining of discomfort in the middle of the chest as a pressure on the chest with no radiation into the arms or neck or shoulders or back and no associated symptoms of shortness of breath or sweating or dizziness or lightheadedness or any feeling of heart racing or fluttering or presyncope or syncope. The discomfort lasted for about 30 minutes and resolved completely after that. He presented for further evaluation. He underwent an EKG which revealed normal sinus mechanism with sinus bradycardia no ischemic ST or T wave abnormalities. First set of troponin came in to be unremarkable. The rest of the blood work including CBC and BMP came in to be unremarkable as well. Please note that his pressure has been elevated and consistent with stage II hypertension but the patient is not aware of any history of hypertension and he does not take any medications at home for hypertension or dyslipidemia and he has no history of coronary artery disease or heart failure or cardiac arrhythmia and never seen any ict project manager before. He does have significant family history with a father who has coronary artery disease at a early stage in his life. The examination is remarkable for regular rhythm with a systolic murmur and clear breathing sounds bilaterally and no carotid bruit and no edema was noted 10/19 Patient is seen today in follow-up. Blood pressure readings are improved at 142/86, heart rate between 48 and 55. Pulse ox 97% on room air. Repeat troponins are 0.058 and 0.079. Chest x-ray reveals no acute process. Echocardiogram reveals normal LV systolic function, EF 55 to 60%. Dilated RV with normal function. Mild to moderate mitral regurgitation. Patient has been continued on a heparin drip. Dr. Holden discussed in detail with the patient the options of stress testing versus cardiac catheterization including risk and benefits of both. Patient has agreed to stay for stress test tomorrow. 10/21 Yesterday, patient underwent cardiac catheterization with Dr. Hernandez which revealed intermediate disease involving the proximal LAD documented to be nonflow limiting by Doppler wire. Intermediate disease involving the proximal left circumflex appears to be nonflow limiting by Doppler wire. Critical disease involving the ostial of the first obtuse marginal branch. Plan was to try medical management. Patient was started on Imdur 30 mg daily and Plavix 75 mg daily. Patient is a has ambulated in the hallway and denies any shortness of breath but he is complaining of a burning type epigastric pain. Patient is quit e adamant that he wants aggressive treatment done for the coronary artery disease. And we will plan that patient will go back to [facility] for PT[facility] today 10/22 Patient went back to the [facility] for stenting of the OM1 with CAYLA. Patient states that he was feeling great until around 8:00 this morning when he got up to the bathroom to urinate. He started having bleeding from the right groin at puncture site. This was quite significant, patient was returned to bed with pressure. He states yesterday he was able to walk in the hallways although the area was tender he did not have any bleeding. He also had an episode where his pressure dropped to 77/51 and he felt quite unwell at that time most likely vasovagal response. Blood pressure is now 154/93, heart rate 79, pulse ox 95% on room air. Patient has been instructed to keep pressure on the site and when he moves position to apply pressure. Plan is to ambulate and if no active bleeding, patient will be discharged home. Physical Examination Gen: This is a 67-year-old male in no acute distress HEENT: Head is atraumatic, normocephalic. Pupils equal, round. Sclerae is anicteric. LUNGS: Clear to auscultation. No wheezes or rhonchi. No intercostal retractions. HEART: Regular rate and rhythm. Systolic murmur. EXTREMITIES: No pedal edema. No calf tenderness. NEUROLOGICAL: Patient is awake, alert and oriented x3. Assessment Coronary artery disease of the ostial of the first obtuse marginal branch status post stent of the OM1 Hypertension emergency could be the etiology for the chest discomfort Significant family history of coronary artery disease Plan Continue patient on Plavix 75 mg daily, aspirin 81 mg daily, atorvastatin 80 mg daily, Toprol-XL 12.5 mg daily Continue Imdur 30 mg daily Prescriptions for new medications have been sent to his pharmacy Monitor bleeding, if no bleeding by late afternoon, patient is cleared for discharge from cardiology May follow-up with Dr. Hernandez in 1 week. Nurse practitioner note has been reviewed, I agree with documented findings and plan of care. Patient was seen and examined. Objective - Vital Signs Vital signs: Vital Signs Temp 98.3 F 10/23/23 03:28 Pulse 79 10/23/23 03:28 Resp 14 10/23/23 03:28 BP 154/93 10/23/23 03:28 Pulse Ox 95 10/23/23 03:28 FiO2 Intake & Output 10/22/23 10/23/23 10/23/23 18:59 06:59 18:59 Intake Total 936.085 0 Output Total 900 550 Balance 36.085 -550 Intake: IV 800 Intake, IV Titration 136.085 Amount Heparin Sod,Pork in 0.45% 136.085 NaCl 25,000 unit In 0.45 % NaCl 1 250ml.bag @ 11. 91 UNITS/KG/HR 9.994 mls/ hr IV .Q24H AYUSH Rx#: [id number] Oral 0 Output: Urine 900 550 Other: Voiding Method Toilet Indwelling Catheter Urinal # Voids 1 - Labs CBC & Chem 7: 10/23/23 07:43 10/23/23 07:43 Labs: Abnormal Lab Results - Last 24 Hours (Table) 10/23/23 Range/Units 07:43 Chloride 109 H (98-107) mmol/L
== END 2023-10-23 15:51 | disposition home or self-care (01) | DRG 322 ==
LOC: EC 04:39 → 6NMEDSUR 05:43 → 1SOBS 10:07 → 3SCARD 19:16 → OBSVTOIN 10-21 08:16
PROVIDERS: ADMIT Hospitalist; ATTEND Hospitalist
PROC: B2111ZZ Fluoroscopy of Multiple Coronary Arteries using Low Osmolar Contrast (ICD-10-PCS; 2023-10-21)
PROC: 4A033BC Measurement of Arterial Pressure, Coronary, Percutaneous Approach (ICD-10-PCS; 2023-10-21)
PROC: 4A023N7 Measurement of Cardiac Sampling and Pressure, Left Heart, Percutaneous Approach (ICD-10-PCS; 2023-10-21 18:20)
PROC: 027034Z Dilation of Coronary Artery, One Artery with Drug-eluting Intraluminal Device, Percutaneous Approach (ICD-10-PCS; principal; 2023-10-22 15:35)
PROC: B240ZZ3 Ultrasonography of Single Coronary Artery, Intravascular (ICD-10-PCS; 2023-10-22 15:35)
DX: I25.119 Atherosclerotic heart disease of native coronary artery with unspecified angina pectoris (principal); I16.1 Hypertensive emergency; I11.9 Hypertensive heart disease without heart failure; E03.9 Hypothyroidism, unspecified; I34.0 Nonrheumatic mitral (valve) insufficiency; K21.9 Gastro-esophageal reflux disease without esophagitis; Z79.02 Long term (current) use of antithrombotics/antiplatelets; Z79.899 Other long term (current) drug therapy; Z86.16 Personal history of COVID-19; Z82.49 Family history of ischemic heart disease and other diseases of the circulatory system; Z79.890 Hormone replacement therapy; Z79.82 Long term (current) use of aspirin; Z86.14 Personal history of Methicillin resistant Staphylococcus aureus infection
CPT/HCPCS: 36415; 71046; 76937; 80048; 80053; 80061; 83735; 84484; 85025; 85049; 85610; 85730; 92921; 92978; 93005; 93306; 93351; 93458; 93799; 96365; 96366; 99291

== ENCOUNTER 2023-10-25 10:35 | Emergency (ER) | payer MEDICARE ==
--- NOTE | 2023-10-25 11:56 | ED ---
General Adult HPI - General Chief complaint: Weakness Stated complaint: Post Op/High BP Time Seen by Provider: 10/25/23 11:02 Source: patient, family, RN notes reviewed Mode of arrival: ambulatory Limitations: no limitations - History of Present Illness Initial comments: Patient is a 68-year-old male present to the emergency department with concerns for high blood pressure. Patient was recently in the hospital and had stent placed 2 days ago. Patient started on multiple medications. Patient felt flushed this morning and took his blood pressure and was as high as 190/120. Patient states the flushed feeling has resolved and otherwise is symptom-free. No chest pain. No dyspnea. - Related Data Home Medications Medication Instructions Recorded Confirmed Levothyroxine Sodium [Synthroid] 175 mcg PO DAILY 08/14/19 10/25/23 Aspirin EC [Ecotrin Low Dose] 81 mg PO DAILY 10/19/23 10/25/23 Omeprazole [PriLOSEC] 20 mg PO DAILY 10/19/23 10/25/23 Nitroglycerin Sl Tabs [Nitrostat] 0.4 mg SL Q5M PRN 10/25/23 10/25/23 Previous Rx's Medication Instructions Recorded Atorvastatin [Lipitor] 80 mg PO DAILY #90 tab 10/23/23 Clopidogrel [Plavix] 75 mg PO DAILY #90 tab 10/23/23 Isosorbide Mononitrate ER [Imdur] 30 mg PO DAILY #90 tab 10/23/23 Metoprolol Succinate (ER) [Toprol 12.5 mg PO DAILY #45 tab 10/23/23 XL] Allergies Allergy/AdvReac Type Severity Reaction Status Date / Time No Known Allergies Allergy Verified 10/25/23 14:20 Review of Systems ROS Statement: Those systems with pertinent positive or pertinent negative responses have been documented in the HPI. ROS Other: All systems not noted in ROS Statement are negative. Constitutional: Denies: fever Eyes: Denies: eye pain ENT: Denies: ear pain Respiratory: Denies: cough Cardiovascular: Denies: chest pain Endocrine: Denies: fatigue Gastrointestinal: Denies: abdominal pain Past Medical History Past Medical History: Coronary Artery Disease (CAD), GERD/Reflux, Thyroid Disorder Additional Past Medical History / Comment(s): HAD COVID IN 2020. DIV ERTICULITIS. GOUTT History of Any Multi-Drug Resistant Organisms: MRSA Date of last positivie culture/infection: 05/30/18 MDRO Source:: RIGHT LEG Past Surgical History: Heart Catheterization With Stent, Hernia Repair Additional Past Surgical History / Comment(s): bilateral ing hernia (EACH AT DIFFERENT TIMES) Past Anesthesia/Blood Transfusion Reactions: No Reported Reaction Past Psychological History: No Psychological Hx Reported Smoking Status: Never smoker Past Alcohol Use History: Occasional Past Drug Use History: None Reported - Past Family History Father Family Medical History: Hypertension, Myocardial Infarction ([place]) Mother Additional Family Medical History / Comment(s): lupus General Exam Limitations: no limitations General appearance: alert, in no apparent distress Head exam: Present: normocephalic Eye exam: Present: normal appearance Neck exam: Present: normal inspection Respiratory exam: Present: normal lung sounds bilaterally Cardiovascular Exam: Present: regular rate, normal rhythm Expanded Peripheral pulses: 2+: Radial (R), Radial (L), Dorsalis Pedis (R), Dorsalis Pedis (L) GI/Abdominal exam: Present: soft. Absent: tenderness Extremities exam: Present: normal inspection. Absent: pedal edema, calf tenderness Neurological exam: Present: alert Psychiatric exam: Present: normal affect, normal mood Skin exam: Present: normal color Course Vital Signs 10/25/23 10/25/23 10/25/23 10:53 12:00 12:56 Temperature 98 F Pulse Rate 77 54 L 50 L Respiratory 20 12 18 Rate Blood Pressure 164/89 118/99 139/94 O2 Sat by Pulse 98 97 98 Oximetry 10/25/23 14:03 Temperature Pulse Rate 47 L Respiratory 18 Rate Blood Pressure 153/98 O2 Sat by Pulse 99 Oximetry EKG Findings - EKG Results: EKG: interpreted by ERMD (Left axis. LVH criteria. Nonspecific T waves.), sinus rhythm Medical Decision Making - Medical Decision Making Was pt. sent in by a medical professional or institution (, PA, [employer]AK TESTER, urgent care, hospital, or custodial...) When possible be specific @ -No Did you speak to anyone other than the patient for history (EMS, parent, family, police, friend...)? What history was obtained from this source @ - is present and helps provide history including blood pressure at home Did you review nursing and triage notes (agree or disagree)? Why? @ -I reviewed and agree with nursing and triage notes Were old charts reviewed (outside hosp., previous admission, EMS record, old EKG, old radiological studies, urgent care reports/EKG's, custodial records)? Report findings @ -Previous heart catheterization reviewed with stent placement Differential Diagnosis (chest pain, altered mental status, abdominal pain women, abdominal pain men, vaginal bleeding, weakness, fever, dyspnea, syncope, headache, dizziness, GI bleed, back pain, seizure, CVA, palpatations, mental health, musculoskeletal)? @ -Differential Chest Pain: Stable Angina, Unstable Angina, STEMI, NSTEMI Aortic Dissection, Pneumothorax, Musculoskeletal, Esophageal Spasm GERD, Cholecystitis, Pancreatitis, Zoster, this is not meant to be an all-inclusive list. EKG interpreted by me (3pts min.). @ -As above X-rays interpreted by me (1pt min.). @ -Chest x-ray shows no acute process CT interpreted by me (1pt min.). @ -None done U/S interpreted by me (1pt. min.). @ -None done What testing was considered but not performed or refused? (CT, X-rays, U/S, labs)? Why? @ -None What meds were considered but not given or refused? Why? @ -None Did you discuss the management of the patient with other professionals (professionals i.e. , PA, [employer] LEAK TESTER, lab, RT, psych nurse, nephrology social worker, shanker out, teacher, community resource officer, rn field case manager)? Give summary @ -Case was discussed with Dr. Castillo who did recommend repeat troponin and if improved patient can be discharged Was smoking cessation discussed for >3mins.? @ -No Was critical care preformed (if so, how long)? @ -No Were there social determinants of health that impacted care today? How? (Homelessness, low income, unemployed, alcoholism, drug addiction, transportation, low edu. Level, literacy, decrease access to med. care, skilled nursing, rehab)? @ -No Was there de-escalation of care discussed even if they declined (Discuss DNR or withdrawal of care, Hospice)? DNR status @ -Consider observation however patient had previous admission and previous stent placement. In addition discussed with cardiology who was comfortable with discharge What co-morbidities impacted this encounter? (DM, HTN, Smoking, COPD, CAD, Cancer, CVA, ARF, Chemo, Hep., AIDS, mental health diagnosis, sleep apnea, morbid obesity)? @ -Coronary artery disease Was patient admitted / discharged? Hospital course, mention meds given and route, prescriptions, significant lab abnormalities, going to OR and other pertinent info. @ -Patient presents with flushing and hypertension. Blood pressure improved. Patient has been chest pain-free the entire time. After discussion with cardiology patient will be discharged for follow-up. Patient updated. Patient was reevaluated Undiagnosed new problem with uncertain prognosis? @ -No Drug Therapy requiring intensive monitoring for toxicity (Heparin, Nitro, Insulin, Cardizem)? @ -No Were any procedures done? @ -No Diagnosis/symptom? @ -Hypertension Acute, or Chronic, or Acute on Chronic? @ -Acute Uncomplicated (without systemic symptoms) or Complicated (systemic symptoms)? @ -Default Side effects of treatment? @ -No Exacerbation, Progression, or Severe Exacerbation? @ -No Poses a threat to life or bodily function? How? (Chest pain, [place], [place], pneumonia, PE, COPD, DKA, ARF, appy, cholecystitis, CVA, Diverticulitis, Homicidal, Suicidal, threat to staff... and all critical care pts) @ -No - Lab Data Result diagrams: 10/25/23 12:20 10/25/23 12:20 Lab Results 10/25/23 10/25/23 10/25/23 Range/Units 12:20 12:20 12:20 WBC 5.6 (3.8-10.6) k/uL RBC 4.50 (4.30-5.90) m/uL Hgb 14.0 (13.0-17.5) gm/dL Hct 41.5 (39.0-53.0) % MCV 92.4 (80.0-100.0) fL MCH 31.1 (25.0-35.0) pg MCHC 33.7 (31.0-37.0) g/dL RDW 13.0 (11.5-15.5) % Plt Count 241 (150-450) k/uL MPV 8.0 Neutrophils % 60 % Lymphocytes % 28 % Monocytes % 7 % Eosinophils % 2 % Basophils % 1 % Neutrophils # 3.4 (1.3-7.7) k/uL Lymphocytes # 1.5 (1.0-4.8) k/uL Monocytes # 0.4 (0-1.0) k/uL Eosinophils # 0.1 (0-0.7) k/uL Basophils # 0.0 (0-0.2) k/uL PT 10.1 (10.0-12.5) sec INR 0.9 (<1.2) APTT 22.9 (22.0-30.0) sec Sodium 139 (137-145) mmol/L Potassium 4.0 (3.5-5.1) mmol/L Chloride 106 (98-107) mmol/L Carbon Dioxide 28 (22-30) mmol/L Anion Gap 5 mmol/L BUN 12 (9-20) mg/dL Creatinine 1.08 (0.66-1.25) mg/dL Est GFR (CKD-EPI)AfAm 82 (>60 ml/min/1.73 sqM) Est GFR (CKD-EPI)NonAf 71 (>60 ml/min/1.73 sqM) Glucose 86 (74-99) mg/dL Plasma Lactic Acid Jorgito (0.7-2.0) mmol/L Calcium 9.6 (8.4-10.2) mg/dL Magnesium 1.9 (1.6-2.3) mg/dL Total Bilirubin 1.1 (0.2-1.3) mg/dL AST 48 (17-59) U/L ALT 60 H (4-49) U/L Alkaline Phosphatase 59 (38-126) U/L Troponin I (0.000-0.034) ng/mL Total Protein 7.0 (6.3-8.2) g/dL Albumin 4.1 (3.5-5.0) g/dL 10/25/23 10/25/23 10/25/23 Range/Units 12:20 12:20 14:00 WBC (3.8-10.6) k/uL RBC (4.30-5.90) m/uL Hgb (13.0-17.5) gm/dL Hct (39.0-53.0) % MCV (80.0-100.0) fL MCH (25.0-35.0) pg MCHC (31.0-37.0) g/dL RDW (11.5-15.5) % Plt Count (150-450) k/uL MPV Neutrophils % % Lymphocytes % % Monocytes % % Eosinophils % % Basophils % % Neutrophils # (1.3-7.7) k/uL Lymphocytes # (1.0-4.8) k/uL Monocytes # (0-1.0) k/uL Eosinophils # (0-0.7) k/uL Basophils # (0-0.2) k/uL PT (10.0-12.5) sec INR (<1.2) APTT (22.0-30.0) sec Sodium (137-145) mmol/L Potassium (3.5-5.1) mmol/L Chloride (98-107) mmol/L Carbon Dioxide (22-30) mmol/L Anion Gap mmol/L BUN (9-20) mg/dL Creatinine (0.66-1.25) mg/dL Est GFR (CKD-EPI)AfAm (>60 ml/min/1.73 sqM) Est GFR (CKD-EPI)NonAf (>60 ml/min/1.73 sqM) Glucose (74-99) mg/dL Plasma Lactic Acid Jorgito 1.2 (0.7-2.0) mmol/L Calcium (8.4-10.2) mg/dL Magnesium (1.6-2.3) mg/dL Total Bilirubin (0.2-1.3) mg/dL AST (17-59) U/L ALT (4-49) U/L Alkaline Phosphatase (38-126) U/L Troponin I 1.140 H* 1.060 H* (0.000-0.034) ng/mL Total Protein (6.3-8.2) g/dL Albumin (3.5-5.0) g/dL Disposition Clinical Impression: Hypertension Disposition: HOME SELF-CARE Condition: Stable Instructions (If sedation given, give patient instructions): Hypertension (ED) Additional Instructions: Please do follow-up with primary care physician and hog pusher this week. Please discuss blood pressure with him. Return for uncontrolled blood pressure, chest pain or shortness of breath, worsening or changing symptoms or other concerns. Is patient prescribed a controlled substance at d/c from ED?: No Referrals: Dano Diaz MD [Primary Care Provider] - 1-2 days Time of Disposition: 14:58
[2023-10-25 12:25] LABS: Basophils % (A) 1 %; Eosinophils # (A) 0.1 k/uL (0-0.7); Eosinophils % (A) 2 %; HCT 41.5 % (39.0-53.0); Lymphocytes # (A) 1.5 k/uL (1.0-4.8); Lymphocytes % (A) 28 %; MCH 31.1 pg (25.0-35.0); MCHC 33.7 g/dL (31.0-37.0); MCV 92.4 fL (80.0-100.0); Monocytes # (A) 0.4 k/uL (0-1.0); Monocytes % (A) 7 %; Neutrophils # (A) 3.4 k/uL (1.3-7.7); Neutrophils % (A) 60 %; Platelet Count 241 k/uL (150-450); WBC 5.6 k/uL (3.8-10.6)
[2023-10-25 12:39] LABS: INR 0.9 (<1.2); Partial Thromboplastin Time 22.9 sec (22.0-30.0); Prothrombin Time 10.1 sec (10.0-12.5)
--- NOTE | 2023-10-25 12:43 | XR ---
EXAMINATION TYPE: XR chest 2V DATE OF EXAM: 10/25/2023 12:32 PM CLINICAL INDICATION:Male, 68 years old with history of Weakness; [facility] COMPARISON: Chest radiographs from 10/19/2023. TECHNIQUE: XR chest 2V Frontal and lateral views of the chest. FINDINGS: Lungs/Pleura: There is no evidence of pleural effusion, focal consolidation, or pneumothorax. Pulmonary vascularity: Unremarkable. Heart/mediastinum: Cardiomediastinal silhouette is unremarkable. Musculoskeletal: No acute osseous pathology. IMPRESSION: No acute cardiopulmonary disease/process.
[2023-10-25 12:48] LABS: ALT 60 U/L (4-49); AST 48 U/L (17-59); African American GFR (CKD) 82 (>60 ml/min/1.73 sqM); Albumin 4.1 g/dL (3.5-5.0); Alkaline Phosphatase 59 U/L (38-126); Anion Gap 5 mmol/L; Blood Urea Nitrogen 12 mg/dL (9-20); Calcium 9.6 mg/dL (8.4-10.2); Carbon Dioxide 28 mmol/L (22-30); Chloride 106 mmol/L (98-107); Glucose 86 mg/dL (74-99); Magnesium 1.9 mg/dL (1.6-2.3); Non-African American GFR(CKD) 71 (>60 ml/min/1.73 sqM); Sodium 139 mmol/L (137-145); Total Bilirubin 1.1 mg/dL (0.2-1.3)
[2023-10-25 13:29] VITALS: RESP 18
[2023-10-25] MEDS: amLODIPine 5 MG TAB PO STA (14:05)
[2023-10-25 15:49] VITALS: BP 153/99; PULSE 62; TEMP 98.1
== END 2023-10-25 15:28 | disposition home or self-care (01) ==
LOC: EC 10:35
DX: I10 Essential (primary) hypertension (principal); I25.10 Atherosclerotic heart disease of native coronary artery without angina pectoris
CPT/HCPCS: 36415; 71046; 80053; 83605; 83735; 84484; 85025; 85610; 85730; 93005; 99285

== ENCOUNTER → 2024-04-20 | Outpatient (CLI) | payer MEDICARE ==
[2024-04-20 15:23] LABS: Blood Urea Nitrogen 16.5 mg/dL (9.0-27.0); Carbon Dioxide 23.8 mmol/L (21.6-31.8); Chloride 104 mmol/L (96-109); Potassium 4.6 mmol/L (3.5-5.5); Sodium 139 mmol/L (135-145)
[2024-04-20 15:25] LABS: HCT 44.8 % (39.6-50.0); HGB 15.3 g/dL (13.0-17.0); MCH 31.2 pg (27.0-32.0); MCHC 34.2 g/dL (32.0-37.0); MCV 91.4 FL (80.0-97.0); Mean Platelet Volume 10.7 FL (9.5-12.2); NRBC Per 100 WBC 0 X 10*3/uL (0.00-0.01); Platelet Count 246 X 10*3/uL (140-440); RDW 13.5 % (11.5-14.5); WBC 5.61 X 10*3/uL (4.50-10.00)
== END | disposition home or self-care (01) ==
LOC: LABWHC1 10:21
PROVIDERS: ATTEND Internal Medicine Interventional Cardiology
DX: Z01.812 Encounter for preprocedural laboratory examination (principal); I25.10 Atherosclerotic heart disease of native coronary artery without angina pectoris
CPT/HCPCS: 36415; 80051; 82565; 84520; 85027

== ENCOUNTER 2024-04-21 05:49 | Day surgery (SDC) | payer MEDICARE ==
[~2024-04-21 05:49] MED LIST changes: +ALPRAZolam 0.25 MG TAB PO PRN; +ALPRAZolam 0.5 MG TAB PO PRN; -LACTATED RINGERS 1,000 ML IV SCH; -LIDOCAINE 1% (10MG/ML) FOR IV START INTRADERMA PRN; -LIDOCAINE 1% INJ 10MG/ML (20 ML MDV) ONE; +NITROGLYCERIN SL TABS 0.4 MG TAB SUBLINGUAL PRN; -PROPOFOL 10 MG/ML 20 ML VIAL IV ONE
[2024-04-21 06:42] LABS: Basophils % (A) 1 %; Eosinophils # (A) 0.1 k/uL (0-0.7); Eosinophils % (A) 2 %; HGB 15.8 gm/dL (13.0-17.5); Lymphocytes # (A) 1.6 k/uL (1.0-4.8); Lymphocytes % (A) 37 %; MCH 30.7 pg (25.0-35.0); MCHC 32.8 g/dL (31.0-37.0); MCV 93.6 fL (80.0-100.0); Mean Platelet Volume 7.4; Monocytes # (A) 0.4 k/uL (0-1.0); Monocytes % (A) 9 %; Neutrophils # (A) 2.2 k/uL (1.3-7.7); Neutrophils % (A) 49 %; Platelet Count 227 k/uL (150-450); RBC 5.13 m/uL (4.30-5.90); RDW 13.4 % (11.5-15.5); WBC 4.4 k/uL (3.8-10.6)
[2024-04-21] MEDS: SODIUM CHLORIDE 0.9% 1,000 ML in EMPTY BAG 1 BAG IV SCH (06:45)
[2024-04-21] MEDS: ASPIRIN 81 MG PO STA (06:45)
[2024-04-21 06:49] LABS: African American GFR (CKD) 81 (>60 ml/min/1.73 sqM); Anion Gap 3 mmol/L; Blood Urea Nitrogen 18 mg/dL (9-20); Calcium 9.2 mg/dL (8.4-10.2); Carbon Dioxide 29 mmol/L (22-30); Chloride 105 mmol/L (98-107); Glucose 90 mg/dL (74-99); Non-African American GFR(CKD) 70 (>60 ml/min/1.73 sqM); Potassium 4.1 mmol/L (3.5-5.1); Sodium 137 mmol/L (137-145)
[2024-04-21 06:54] VITALS: RESP 16; TEMP 98.3
[2024-04-21] MEDS: SODIUM CHLORIDE 0.9% 1,000 ML IV ONE (06:54)
[2024-04-21] MEDS ORDERED: ASPIRIN 325 MG TAB PO ONE (07:00)
[2024-04-21] MEDS ORDERED: ATORVASTATIN 80 MG TAB PO ONE (07:00)
[2024-04-21] MEDS: LIDOCAINE 1% INJ 10MG/ML (20 ML MDV) SQ ONE (07:37)
[2024-04-21] MEDS: fentaNYL (PF) 50 MCG/ML 2 ML AMP IVP ONE (07:38)
[2024-04-21] MEDS: MIDAZOLAM 2 MG/2 ML VIAL IVP ONE (07:38)
[2024-04-21] MEDS: HEPARIN SODIUM 1,000 UN/ML (10ML VL) IVP ONE (07:41)
[2024-04-21] MEDS: IOPAMIDOL-370 100ML BTL INJ ONE (07:58)
[2024-04-21] MEDS: HEPARIN SODIUM,PORCINE 10,000 UNIT in SODIUM CHLORIDE 0.9% 1,000 ML IRRIGATION PRN (07:59)
[2024-04-21] MEDS: HEPARIN SODIUM,PORCINE (1 ML) 2,500 UNIT in SODIUM CHLORIDE 0.9% 250 ML IRRIGATION PRN (07:59)
[2024-04-21] MEDS ORDERED: RX INFO: IV CONTRAST WAS GIVEN 1 EACH MISC MISCELLANE PRN (08:06)
--- NOTE | 2024-04-21 08:10 | P.PCN ---
Date of Procedure: 04/21/24 Operative Findings: CARDIAC CATHETERIZATION PERFORMING PHYSICIAN: Jacinto Hernandez MD, RPVI PROCEDURE PERFORMED: 1. Selective right and left coronary angiogram and IFR of the LCx and LAD 2. Left heart catheterization 3. Ultrasound-guided access of the right radial artery INDICATION: Chest discomfort concerning for angina in this 68-year-old gentleman who is known to have CAD with prior stenting of OM1 COMPLICATION: None APPROACH: Right radial artery LEVEL OF SEDATION: Moderate with a sedation length of 20 minutes PROCEDURE DESCRIPTION: After obtaining an informed consent, the patient was brought to cardiac record label internship. Local anesthesia was performed using lidocaine subcutaneously. The right radial artery was cannulated using Seldinger technique, the guidewire passed easily, following that we advanced a 5-Chadian sheath dilator assembly, the wire and dilator were removed and sheath was flushed. Following that, 2 mg of verapamil along with 5000 unit heparin were given. Selective right and left coronary angiogram using a 6-Chadian JR4 and JL 3.5 catheters. Subsequently we decided to do an IFR of the LCx and LAD. Anticoagulation was continued using heparin with continuous ACT monitoring. Subsequently after zeroing the Doppler wire and equalizing between the Doppler wire and guiding catheter we did engage the left main. The wire was advanced toward the LCx and IFR came to be at 0.98. Subsequently the wire was directed toward the LAD and IFR came in to be at 0.90. Following that we did left heart catheterization using 6-Chadian pigtail catheter. The procedure was completed there was no complication. SELECTIVE CORONARY ANGIOGRAM: The right coronary artery: Large-caliber vessel with mild disease only with this a dominant vessel Left main: Is angiographically normal The left circumflex: Large-caliber vessel nondominant vessel with intermediate lesion involving the proximal portion documented to be nonflow limiting by Doppler wire but angiographically appears to be in the range of 60 to 70% at least The left anterior descending artery: Large-caliber vessel with intermediate disease involving the proximal portion also documented to be nonflow limiting with IFR with IFR of 0.90 HEMODYNAMICS: The LVEDP was 12 mmHg with no significant gradient across aortic valve CONCLUSION: 1. Intermediate to severe disease involving the proximal LCx. iFR was negative but angiographically appeared to be concerning 2. Intermediate disease involving the LAD. IFR came to be negative POSTPROCEDURE MANAGEMENT: Medical treatment at this point and consider PCI of the LCx if the patient remains symptomatic
[2024-04-21] MEDS ORDERED: SODIUM CHLORIDE 0.9% 1,000 ML IV SCH (08:15)
[2024-04-21 12:11] VITALS: PULSE 44
[2024-04-21 12:14] VITALS: BP 162/92
== END 2024-04-21 12:11 | disposition home or self-care (01) ==
LOC: CATHCVL 05:49
PROVIDERS: ATTEND Internal Medicine Interventional Cardiology
DX: I25.10 Atherosclerotic heart disease of native coronary artery without angina pectoris (principal); I10 Essential (primary) hypertension; E78.5 Hyperlipidemia, unspecified; Z79.02 Long term (current) use of antithrombotics/antiplatelets; Z79.82 Long term (current) use of aspirin; Z79.899 Other long term (current) drug therapy; Z95.5 Presence of coronary angioplasty implant and graft
CPT/HCPCS: 93458; 93799; 80048; 85025; 99152; C1887; C1769 ×2; C1894; J2250; J1644 ×3; J2003; J3010; Q9967

== ENCOUNTER → 2024-08-09 | Outpatient (CLI) | payer MEDICARE ==
--- NOTE | 2024-08-09 08:55 | US ---
EXAMINATION TYPE: US carotid duplex BILAT DATE OF EXAM: 08/09/2024 COMPARISON: NONE CLINICAL INDICATION: Male, 68 years old with history of R42 Dizziness and giddiness; Dizziness Additional History: R42* Dizziness TECHNIQUE: Grayscale, color Doppler and spectral Doppler evaluation of the bilateral carotid systems and vertebral arteries. Indirect Doppler criteria was utilized. FINDINGS: EXAM MEASUREMENTS: RIGHT: Peak Systolic Velocity (PSV) cm/sec ----- Right CCA: 72.9 ----- Right ICA: 77.3 ----- Right ECA: 62.5 ICA/CCA ratio: 1.1 RIGHT: End Diastole cm/sec ----- Right CCA: 20.6 ----- Right ICA: 32.8 ----- Right ECA: 17.1 LEFT: Peak Systolic Velocity (PSV) cm/sec ----- Left CCA: 63.3 ----- Left ICA: 59.1 ----- Left ECA: 100.4 ICA/CCA ratio: 0.9 LEFT: End Diastole cm/sec ----- Left CCA: 18.0 ----- Left ICA: 13.8 ----- Left ECA: 21.5 VERTEBRALS (direction of flow): Right Vertebral: Antegrade Left Vertebral: Antegrade Rhythm: Normal [employer] NOTES: Mild plaque bilateral bifurcations. No evidence of increased velocities Color Doppler imaging shows patency with blood flow throughout the carotid artery. Spectral waveforms are within normal limits. IMPRESSION: Right: No hemodynamically significant stenosis. Left: No hemodynamically significant stenosis. Criteria for Assigning % of Stenosis / Diameter reduction (Estimation based on the indirect measurements of the internal carotid artery velocities (ICA PSV). 1. Normal (no stenosis)=ICA PSV < 125 cm/s: ratio < 2.0: ICA EDV<40 cm/s. 2. Less than 50% stenosis=ICA PSV < 125 cm/s: ratio < 2.0: ICA EDV<40 cm/s. 3. 50 to 69% stenosis=ICA PSV of 125 to 230 cm/s: ration 2.0 ? 4.0: ICA EDV 40-100 cm/s. 4. Greater than 70% stenosis to near occlusion= ICA PSV > 230 cm/s: ratio > 4.0: ICA EDV > 100 cm/s. 5. Near occlusion= ICA PSV velocities may be low or undetectable: variable ratio and ICA EDV. 6. Total occlusion=unable to detect flow. [facility], , 08/09/2024 8:53 AM
== END | disposition home or self-care (01) ==
LOC: RADUSWWP 07:59
PROVIDERS: ATTEND Family Medicine
DX: R42 Dizziness and giddiness (principal)
CPT/HCPCS: 93880

== ENCOUNTER 2025-01-02 23:07 | Observation (INO) | payer MEDICARE ==
--- NOTE | 2025-01-02 23:33 | ED ---
Chest Pain HPI - General Chief Complaint: Chest Pain Stated Complaint: right chest pain Time Seen by Provider: 01/02/25 23:15 Source: patient Mode of arrival: ambulatory - History of Present Illness Initial Comments: This patient is a 69-year-old man who is here to have evaluation of chest pain. He states that he started having episodes 2 days ago but they were brief. He indicates that the pain goes towards the right shoulder. He had been playing kickball with his family and thought that it was related to throwing the ball. I he states that there is no exertional component to the pain he is still able to ride bicycle without the pain coming on. Tonight the pain was more constant than it had been over the past days. He was feeling flushed but denies sweating. No nausea vomiting, dyspnea, palpitations or syncope. MD Complaint: chest pain Onset/Timin -: hour(s) Onset: during rest Pain Location: substernal Pain Radiation: RUE Severity: moderate Quality: heaviness Consistency: now resolved Improves With: nothing Worsens With: nothing Treatments Prior to Arrival: none - Related Data Home Medications Medication Instructions Recorded Confirmed Levothyroxine Sodium [Synthroid] 175 mcg PO DAILY 08/14/19 04/21/24 Aspirin EC [Ecotrin Low Dose] 81 mg PO DAILY 10/19/23 04/21/24 Omeprazole [PriLOSEC] 20 mg PO DAILY 10/19/23 04/21/24 Nitroglycerin Sl Tabs [Nitrostat] 0.4 mg SL Q5M PRN 10/25/23 04/20/24 Ezetimibe [Zetia] 10 mg PO DAILY 04/20/24 04/21/24 Previous Rx's Medication Instructions Recorded Atorvastatin [Lipitor] 80 mg PO DAILY #90 tab 10/23/23 Clopidogrel [Plavix] 75 mg PO DAILY #90 tab 10/23/23 Allergies Allergy/AdvReac Type Severity Reaction Status Date / Time No Known Allergies Allergy Verified 01/02/25 23:11 Review of Systems ROS Statement: Those systems with pertinent positive or pertinent negative responses have been documented in the HPI. ROS Other: All systems not noted in ROS Statement are negative. Constitutional: Denies: fever, chills, weakness Respiratory: Denies: cough, dyspnea Cardiovascular: Reports: chest pain. Denies: palpitations, orthopnea, edema, syncope Gastrointestinal: Denies: abdominal pain, nausea, vomiting, diarrhea Genitourinary: Denies: dysuria, hematuria Musculoskeletal: Denies: back pain Skin: Denies: rash Neurological: Denies: headache, weakness, numbness EKG Findings - EKG Results: EKG: interpreted by SILVIAD, sinus rhythm, normal axis, normal QRS, normal ST/T EKG shows: bradycardia (Rate 57 bpm) Past Medical History Past Medical History: Coronary Artery Disease (CAD), Chest Pain / Angina, GERD/Reflux, Hypertension, Thyroid Disorder Additional Past Medical History / Comment(s): HAD COVID IN 2020. DIVERTICULITIS. GOUTT History of Any Multi-Drug Resistant Organisms: MRSA Date of last positivie culture/infection: 05/30/18 MDRO Source:: RIGHT LEG Past Surgical History: Heart Catheterization With Stent, Hernia Repair Additional Past Surgical History / Comment(s): bilateral ing hernia (EACH AT DIFFERENT TIMES) Past Anesthesia/Blood Transfusion Reactions: No Reported Reaction Date of Last Stent Placement:: october 2023 Past Psychological History: Anxiety Smoking Status: Never smoker Past Alcohol Use History: Occasional Past Drug Use History: None Reported - Past Family History Father Family Medical History: Hypertension, Myocardial Infarction ([place]) Mother Additional Family Medical History / Comment(s): lupus General Exam General appearance: alert, in no apparent distress Head exam: Present: atraumatic, normocephalic Eye exam: Present: normal appearance. Absent: scleral icterus, conjunctival injection ENT exam: Present: normal oropharynx Neck exam: Present: normal inspection, full ROM. Absent: tenderness, meningismus Respiratory exam: Present: normal lung sounds bilaterally. Absent: respiratory distress, wheezes, rales, rhonchi, stridor, chest wall tenderness, accessory muscle use Cardiovascular Exam: Present: normal rhythm, bradycardia, normal heart sounds. Absent: systolic murmur, diastolic murmur, rubs, gallop GI/Abdominal exam: Present: soft. Absent: distended, tenderness, guarding, rebound, rigid, mass Back exam: Present: normal inspection. Absent: CVA tenderness (R), CVA tenderness (L), vertebral tenderness Neurological exam: Present: alert Skin exam: Present: warm, dry, intact, normal color. Absent: rash Course Vital Signs 01/02/25 01/02/25 01/03/25 23:08 23:41 02:02 Temperature 97.9 F 97.8 F Pulse Rate 55 L 77 54 L Respiratory 19 18 Rate Blood Pressure 187/103 163/107 179/101 O2 Sat by Pulse 98 97 97 Oximetry 01/03/25 03:18 Temperature 97.7 F Pulse Rate 45 L Respiratory 16 Rate Blood Pressure 158/104 O2 Sat by Pulse 97 Oximetry Chest Pain MDM - MDM The patient had chest x-ray that I interpreted as negative for acute infiltrate, pneumothorax, congestive heart failure Patient is 69-year-old man with previous CAD/stenting who arrives with pain that he states is very similar to previous episode. In light of this, will admit patient to have serial cardiac enzymes, telemetry monitoring, cardiology consultation. The initial workup is negative. Disposition Clinical Impression: Chest pain Disposition: ADMITTED IP TO THIS HOSP Condition: Good Is patient prescribed a controlled substance at d/c from ED?: No
[2025-01-02 23:37] LABS: Basophils # (A) 0.04 10*3/uL (0.00-0.10); Basophils % (A) 0.7 %; Eosinophils # (A) 0.19 10*3/uL (0.04-0.35); Eosinophils % (A) 3.3 %; HCT 41.5 % (39.6-50.0); HGB 14.8 g/dL (13.0-17.0); Lymphocytes # (A) 1.73 10*3/uL (0.90-5.00); Lymphocytes % (A) 30.4 %; MCH 31.6 pg (27.0-32.0); MCHC 35.7 g/dL (32.0-37.0); MCV 88.7 fL (80.0-97.0); Monocytes # (A) 0.63 10*3/uL (0.20-1.00); Monocytes % (A) 11.1 %; Neutrophils # (A) 3.09 10*3/uL (1.80-7.70); Neutrophils % (A) 54.3 %; Platelet Count 238 10*3/uL (140-440); RBC 4.68 10*6/uL (4.40-5.60); RDW 12.8 % (11.5-14.5); WBC 5.69 10*3/uL (4.50-10.00)
[2025-01-02] MEDS: NITROGLYCERIN SL TABS 0.4 MG TAB SUBLINGUAL STA (23:39)
[2025-01-02] MEDS: ASPIRIN 81 MG PO STA (23:39)
[2025-01-02 23:51] LABS: ALT 33 U/L (4-49); AST 32 U/L (17-59); African American GFR (CKD) 81 (>60 ml/min/1.73 sqM); Albumin 4.5 g/dL (3.5-5.0); Alkaline Phosphatase 61 U/L (38-126); Anion Gap 11 mmol/L; Blood Urea Nitrogen 19 mg/dL (9-20); Calcium 10.1 mg/dL (8.4-10.2); Carbon Dioxide 23 mmol/L (22-30); Chloride 103 mmol/L (98-107); Glucose 90 mg/dL (74-99); Magnesium 1.9 mg/dL (1.6-2.3); Non-African American GFR(CKD) 70 (>60 ml/min/1.73 sqM); Potassium 4.1 mmol/L (3.5-5.1); Sodium 137 mmol/L (137-145); Total Protein 7.3 g/dL (6.3-8.2)
[2025-01-02 23:53] LABS: INR 0.9 (<1.2); Partial Thromboplastin Time 22.9 sec (22.0-30.0); Prothrombin Time 10.4 sec (10.0-12.5)
[2025-01-03] MEDS ORDERED: NITROGLYCERIN SL TABS 0.4 MG TAB SUBLINGUAL PRN (01:15)
--- NOTE | 2025-01-03 01:35 | XR ---
EXAM: XR Chest, 2 Views CLINICAL HISTORY: ITS.REASON XR Reason: Chest Pain TECHNIQUE: Frontal and lateral views of the chest. COMPARISON: No relevant prior studies available. FINDINGS: Lungs: Unremarkable. No consolidation. Pleural space: Unremarkable. No pneumothorax. Heart: Unremarkable. No cardiomegaly. Mediastinum: Unremarkable. Bones/joints: Unremarkable. IMPRESSION: No consolidation.
[2025-01-03 03:26] VITALS: RESP 16
[2025-01-03 04:28] VITALS: TEMP 97.5
[2025-01-03] MEDS: PANTOPRAZOLE 40 MG TABLET PO SCH (06:24)
[2025-01-03] MEDS: LEVOTHYROXINE 75 MCG TAB PO SCH (06:24)
[2025-01-03] MEDS: LEVOTHYROXINE 100 MCG TAB PO SCH (06:24)
[2025-01-03] MEDS: ATORVASTATIN 80 MG TAB PO SCH (09:02)
[2025-01-03] MEDS: CLOPIDOGREL 75 MG TAB PO SCH (09:02)
[2025-01-03] MEDS: amLODIPine 5 MG TAB PO SCH (09:02)
[2025-01-03] MEDS: EZETIMIBE 10 MG TAB PO SCH (09:02)
[2025-01-03] MEDS: LOSARTAN 25 MG TAB PO SCH (09:02)
[2025-01-03] MEDS: ASPIRIN 81 MG PO SCH (09:02)
--- NOTE | 2025-01-03 10:26 | P.CRDCN ---
History of Present Illness Consult date: 01/03/25 Consult reason: chest pain History of present illness: This is a 69-year-old male patient of Dr. Hernandez with past medical history of CAD with prior stenting of the OM and known intermediate disease involving the AV groove left circumflex as well as LAD, hypertension, dyslipidemia, VHD with MR and statin intolerance. We have been asked to evaluate the patient for chest pain. Patient states that he developed chest pain that was shooting type pain on the right side and also went to the right arm. He states he was playing kickball this weekend he thought it was more muscle related. He also states that at home his blood pressure readings have been high with a systolic of 170. He states he is able to ride his bike and workout as normal and does not have any symptoms. He is states he has some chest tightness at the time of this evaluation. He is scheduled to go on a trip to [place] on Wednesday. Patient is a non-smoker. Blood pressure 170/91, heart rate 45-77. Pulse ox 98% on room air. Nursing related concerned about bradycardia he was down to heart rate of 39. Patient was last seen in the office on 11/21/2024 and patient was asymptomatic at that time. Plan was to discontinue Ranexa and continue Plavix for an additional 6 months for total of 18 months. -EKG: Sinus rhythm with no acute ST-T wave changes. -Chest x-ray: No acute process. -Laboratory studies: CBC, INR, CMP, magnesium all within normal limits. Troponin negative x 3. TSH 2.4. -Home cardiac medications: Aspirin 81 mg daily, Plavix 75 mg daily, Zetia 10 mg daily, losartan 25 mg daily. -Cardiac catheterization performed 04/21/2024 revealed intermediate disease of the left circumflex, IFR was negative. Intermediate disease of the LAD, IFR was negative. - PCI of the OM1 10/22/2023 Echocardiogram performed 10/20/2023 revealed normal EF, mild to moderate MR. Review Of Systems: At the time of my exam: CONSTITUTIONAL: Denies fever or chills. HEENT: Denies blurred vision, vision changes, or eye pain. Denies hemoptysis CARDIOVASCULAR: Denies chest pain. Denies orthopnea. Denies PND. Denies palpitations RESPIRATORY: Denies shortness of breath. GASTROINTESTINAL: Denies abdominal pain. Denies nausea or vomiting. HEMATOLOGIC: Denies bleeding disorders. GENITOURINARY: Denies any blood in urine. SKIN: Denies puritis. Denies rash. Physical examination: Gen: This is 69-year-old male in no acute distress. VS: reviewed HEENT: Head is atraumatic, normocephalic. Pupils equal, round. Sclerae is anicteric. NECK: Supple. No JVD. LUNGS: Clear to auscultation. No wheezes or rhonchi. No intercostal retractions. HEART: Regular rate and rhythm. Systolic murmur. ABDOMEN: Soft No tenderness. EXTREMITIES: No pedal edema. No calf tenderness. NEUROLOGICAL: Patient is awake, alert and oriented x3. Assessment: Uncontrolled hypertension Atypical chest pain, possibly related to hypertension Bradycardia, mild, asymptomatic History of CAD with prior stenting to the OM and known intermediate disease of the AV groove left circumflex, LAD Hypertension Dyslipidemia VHD and MR Statin intolerance Plan: Resume patient's home cardiac medications And amlodipine 5 mg daily Patient to monitor blood pressure at home If blood pressure is improved by this afternoon, patient is cleared for discharge. Patient may follow-up with Dr. Hernandez in the office following his trip to [place]. Thank you kindly for this consultation. Nurse practitioner note has been reviewed, I agree with documented findings and plan of care. Patient was seen and examined. Past Medical History Past Medical History: Coronary Artery Disease (CAD), Chest Pain / Angina, GERD/Reflux, Hypertension, Thyroid Disorder Additional Past Medical History / Comment(s): HAD COVID IN 2020. DIVERTICULITIS. GOUTT History of Any Multi-Drug Resistant Organisms: MRSA Date of last positivie culture/infection: 05/30/18 MDRO Source:: RIGHT LEG Past Surgical History: Heart Catheterization With Stent, Hernia Repair Additional Past Surgical History / Comment(s): bilateral ing hernia (EACH AT DIFFERENT TIMES) Past Anesthesia/Blood Transfusion Reactions: No Reported Reaction Date of Last Stent Placement:: october 2023 Past Psychological History: Anxiety Smoking Status: Never smoker Past Alcohol Use History: Occasional Past Drug Use History: None Reported - Past Family History Father Family Medical History: Hypertension, Myocardial Infarction ([place]) Mother Additional Family Medical History / Comment(s): lupus Medications and Allergies Home Medications Medication Instructions Recorded Confirmed Type Levothyroxine Sodium [Synthroid] 175 mcg PO DAILY 08/14/19 01/03/25 History Aspirin EC [Ecotrin Low Dose] 81 mg PO DAILY 10/19/23 01/03/25 History Omeprazole [PriLOSEC] 20 mg PO DAILY 10/19/23 01/03/25 History Clopidogrel [Plavix] 75 mg PO DAILY #90 tab 10/23/23 01/03/25 Rx Nitroglycerin Sl Tabs [Nitrostat] 0.4 mg SL Q5M PRN 10/25/23 01/03/25 History Ezetimibe [Zetia] 10 mg PO DAILY 04/20/24 01/03/25 History Losartan [Cozaar] 25 mg PO DAILY 01/03/25 01/03/25 History Allergies Allergy/AdvReac Type Severity Reaction Status Date / Time No Known Allergies Allergy Verified 01/03/25 09:02 Physical Exam Vitals: Vital Signs Temp Pulse Pulse Resp BP BP Pulse Ox 01/03/25 04:27 97.5 F L 52 L 16 187/97 100 01/03/25 03:18 97.7 F 45 L 16 158/104 97 01/03/25 02:02 97.8 F 54 L 18 179/101 97 01/02/25 23:41 77 163/107 97 01/02/25 23:08 97.9 F 55 L 19 187/103 98 Intake and Output 01/02/25 01/03/25 01/03/25 22:59 06:59 14:59 Other: Voiding Method Toilet # Voids 1 Weight 81.647 kg Results 01/02/25 23:30 01/02/25 23:30 Cardiac Enzymes 01/02/25 01/02/25 01/03/25 Range/Units 23:30 23:30 02:13 AST 32 (17-59) U/L Troponin I <0.012 <0.012 (0.000-0.034) ng/mL 01/03/25 Range/Units 05:18 AST (17-59) U/L Troponin I <0.012 (0.000-0.034) ng/mL Coagulation 01/02/25 Range/Units 23:30 PT 10.4 (10.0-12.5) sec APTT 22.9 (22.0-30.0) sec CBC 01/02/25 Range/Units 23:30 WBC 5.69 (4.50-10.00) 10*3/uL RBC 4.68 (4.40-5.60) 10*6/uL Hgb 14.8 (13.0-17.0) g/dL Hct 41.5 (39.6-50.0) % Plt Count 238 (140-440) 10*3/uL Comprehensive Metabolic Panel 01/02/25 Range/Units 23:30 Sodium 137 (137-145) mmol/L Potassium 4.1 (3.5-5.1) mmol/L Chloride 103 (98-107) mmol/L Carbon Dioxide 23 (22-30) mmol/L BUN 19 (9-20) mg/dL Creatinine 1.09 (0.66-1.25) mg/dL Glucose 90 (74-99) mg/dL Calcium 10.1 (8.4-10.2) mg/dL AST 32 (17-59) U/L ALT 33 (4-49) U/L Alkaline Phosphatase 61 (38-126) U/L Total Protein 7.3 (6.3-8.2) g/dL Albumin 4.5 (3.5-5.0) g/dL Current Medications Generic Name Dose Route Start Last Admin Trade Name Freq PRN Reason Stop Dose Admin Aspirin 81 mg 01/03/25 09:00 Aspirin 81 Mg PO DAILY [facility] Atorvastatin Calcium 80 mg 01/03/25 09:00 Atorvastatin 80 Mg Tab PO DAILY [facility] Clopidogrel Bisulfate 75 mg 01/03/25 09:00 Clopidogrel 75 Mg Tab PO DAILY [facility] Ezetimibe 10 mg 01/03/25 09:00 Ezetimibe 10 Mg Tab PO DAILY [facility] Levothyroxine Sodium 100 mcg 01/03/25 06:00 01/03/25 06:24 Levothyroxine 100 Mcg Tab PO 100 mcg DAILY@0600 AYUSH Administration Levothyroxine Sodium 75 mcg 01/03/25 06:00 01/03/25 06:24 Levothyroxine 75 Mcg Tab PO 75 mcg DAILY@0600 AYUSH Administration Nitroglycerin 0.4 mg 01/03/25 01:15 Nitroglycerin Sl Tabs 0.4 Mg Tab SUBLINGUAL Q5M PRN Chest Pain Pantoprazole Sodium 40 mg 01/03/25 07:30 01/03/25 06:24 Pantoprazole 40 Mg Tablet PO 40 mg [id number] Administration Intake and Output 01/02/25 01/03/25 01/03/25 22:59 06:59 14:59 Other: Voiding Method Toilet # Voids 1 Weight 81.647 kg 01/02/25 23:30 01/02/25 23:30
[2025-01-03 11:54] VITALS: BP 176/105
[2025-01-03 12:00] VITALS: PULSE 54
[2025-01-04] MEDS ORDERED: ASPIRIN 325 MG TAB PO SCH (09:00)
--- NOTE | 2025-01-08 05:24 | P.DS ---
Providers Date of admission: 01/03/25 01:17 Expected date of discharge: 01/03/25 Attending physician: Chivo Xiao Consults: 01/03/25 01:15 Consult Physician Routine Consulting Provider: Jacinto Hernandez Consult Reason/Comments: chest pain Do you want consulting provider notified?: Yes Primary care physician: Dano Diaz Hospital Course: Final diagnosis Chest pain, ruled out ACS Uncontrolled hypertension on admission Mild bradycardia noted on EKG History of hypertension History of coronary artery disease with previous stenting to the OM Hyperlipidemia History of anxiety Hypothyroidism GI prophylaxis DVT prophylax Discharge disposition Patient is being discharged in a stable condition with guarded prognosis to home. Patient will follow-up with Dr. Diaz in the outpatient setting upon discharge. Patient is to continue with current medications and outpatient follow-up with cardiology as scheduled. Total time taken is greater than 35 minutes. Hospital course This is a pleasant 69-year-old male who presented to the emergency department with with chest pain and chest pressure reports he was having intermittent episodes that would radiate up to his right shoulder. Patient reports he was playing kickball with his family had some pain after throwing a ball that persisted and patient came to the ER for further evaluation. Patient follows with Dr. Hernandez cardiology as well as Dr. Diaz primary care provider in the outpatient setting with a past medical history of hypertension. Patient also has history of coronary artery disease, angina, GERD, thyroid disorder and has had previous myocardial infarction with stent take in October 2023. Labs reviewed reveal a white count of platelets 238, sodium 137 with a potassium of 4.1, BUN is 19 and creatinine is 1.09, magnesium is 1.9, troponins x 3 are negative, TSH is 2.4. EKG revealed sinus bradycardia and chest x-ray showed no noted. Patient was admitted with chest pain for cardiology evaluation. PHYSICAL EXAMINATION: GENERAL: The patient is alert and oriented x3, not in any acute distress. Well developed, thin built HEENT: Pupils are round and equally reacting to light. EOMI. No scleral icterus. No conjunctival pallor. Normocephalic, atraumatic. No pharyngeal erythema. No thyromegaly. CARDIOVASCULAR: S1 and S2 muffled PULMONARY: Chest is clear to auscultation, no wheezing or crackles. ABDOMEN: Soft, nontender, nondistended, normoactive bowel sounds. No palpable organomegaly. MUSCULOSKELETAL: No joint swelling or deformity. EXTREMITIES: No cyanosis, clubbing, or pedal edema. NEUROLOGICAL: Gross neurological examination did not reveal any focal deficits. SKIN: No rashes. Please refer to medication reconciliation sheet for a list of medications. The impression and plan of care has been dictated by Dayanara Shepard, Nurse Practitioner as directed. Dr. Yasmine MD I have performed a history and examination and MDM of this patient, discussed the same with the dictator, and agree with the dictator's assessment and plan as written ,documented as a scribe. Based on total visit time, I have performed more than 50% of the visit. Patient Condition at Discharge: Good Plan - Discharge Summary Discharge Rx Participant: Yes New Discharge Prescriptions: New amLODIPine [Norvasc] 5 mg PO DAILY 30 Days #30 tab Continue Levothyroxine Sodium [Synthroid] 175 mcg PO DAILY Omeprazole [PriLOSEC] 20 mg PO DAILY Aspirin EC [Ecotrin Low Dose] 81 mg PO DAILY Clopidogrel [Plavix] 75 mg PO DAILY #90 tab Nitroglycerin Sl Tabs [Nitrostat] 0.4 mg SL Q5M PRN PRN Reason: Chest Pain Ezetimibe [Zetia] 10 mg PO DAILY Losartan [Cozaar] 25 mg PO DAILY Discharge Medication List Levothyroxine Sodium [Synthroid] 175 mcg PO DAILY 08/14/19 [History] Aspirin EC [Ecotrin Low Dose] 81 mg PO DAILY 10/19/23 [History] Omeprazole [PriLOSEC] 20 mg PO DAILY 10/19/23 [History] Clopidogrel [Plavix] 75 mg PO DAILY #90 tab 10/23/23 [Rx] Nitroglycerin Sl Tabs [Nitrostat] 0.4 mg SL Q5M PRN 10/25/23 [History] Ezetimibe [Zetia] 10 mg PO DAILY 04/20/24 [History] Losartan [Cozaar] 25 mg PO DAILY 01/03/25 [History] amLODIPine [Norvasc] 5 mg PO DAILY 30 Days #30 tab 01/03/25 [Rx] Follow up Appointment(s)/Referral(s): Dano Diaz MD [Primary Care Provider] - 1-2 days Jacinto Hernandez MD [STAFF PHYSICIAN] - 2 Weeks Patient Instructions/Handouts: Chest Pain (DC) Activity/Diet/Wound Care/Special Instructions: Activity limited until follow-up Follow-up with primary administrative support assistant Dr. Hernandez outpatient in 2 weeks Follow-up with primary care provider Continue taking blood pressure medications as prescribed Recommend daily monitoring of blood pressure readings after sitting and being calm and relaxed for 20 minutes and attempting to take at the same time every day and keep a diary of all readings for primary and cardiology follow-up If blood pressure top number systolic is 100 or less, hold blood pressure medications and contact cardiology Continue heart healthy diet Discharge Disposition: HOME SELF-CARE
--- NOTE | 2025-01-08 05:24 | P.HPIM ---
History of Present Illness H&P Date: 01/03/25 This is a pleasant 69-year-old male who presented to the emergency department with with chest pain and chest pressure reports he was having intermittent episodes that would radiate up to his right shoulder. Patient reports he was playing kickball with his family had some pain after throwing a ball that persisted and patient came to the ER for further evaluation. Patient follows with Dr. Hernandez cardiology as well as Dr. Diaz primary care provider in the outpatient setting with a past medical history of hypertension. Patient also has history of coronary artery disease, angina, GERD, thyroid disorder and has had previous myocardial infarction with stent take in October 2023. Labs reviewed reveal a white count of platelets 238, sodium 137 with a potassium of 4.1, BUN is 19 and creatinine is 1.09, magnesium is 1.9, troponins x 3 are negative, TSH is 2.4. EKG revealed sinus bradycardia and chest x-ray showed no noted. Patient was admitted with chest pain for cardiology evaluation. REVIEW OF SYSTEMS: CONSTITUTIONAL: No fever, no malaise, no fatigue. HEENT: No recent visual problems or hearing problems. Denied any sore throat. CARDIOVASCULAR: Reports of previous chest pain that radiated up his right arm, orthopnea, PND, no palpitations, no syncope. PULMONARY: No shortness of breath, no cough, no hemoptysis. GASTROINTESTINAL: No diarrhea, no nausea, no vomiting, no abdominal pain. NEUROLOGICAL: No headaches, no weakness, no numbness. HEMATOLOGICAL: Denies any bleeding or petechiae. GENITOURINARY: Denies any burning micturition, frequency, or urgency. MUSCULOSKELETAL/RHEUMATOLOGICAL: Denies any joint pain, swelling, or any muscle pain. ENDOCRINE: Denies any polyuria or polydipsia. The rest of the 14-point review of systems is negative. PHYSICAL EXAMINATION: GENERAL: The patient is alert and oriented x3, not in any acute distress. Well developed, thin built HEENT: Pupils are round and equally reacting to light. EOMI. No scleral icterus. No conjunctival pallor. Normocephalic, atraumatic. No pharyngeal erythema. No thyromegaly. CARDIOVASCULAR: S1 and S2 muffled PULMONARY: Chest is clear to auscultation, no wheezing or crackles. ABDOMEN: Soft, nontender, nondistended, normoactive bowel sounds. No palpable organomegaly. MUSCULOSKELETAL: No joint swelling or deformity. EXTREMITIES: No cyanosis, clubbing, or pedal edema. NEUROLOGICAL: Gross neurological examination did not reveal any focal deficits. SKIN: No rashes. Assessment: Chest pain, ruled out ACS Uncontrolled hypertension on admission Mild bradycardia noted on EKG History of hypertension History of coronary artery disease with previous stenting to the OM Hyperlipidemia History of anxiety Hypothyroidism GI prophylaxis DVT prophylax Plan: Patient was admitted for chest pain and ruled out ACS. Cardiology evaluated the patient and also adjusted medications as patient's blood pressure was uncontrolled. 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 Hernandez outpatient Patient is adamant he is going home as he has a trip planned to [place] and reported will leave AGAINST MEDICAL ADVICE if not cleared Patient instructed to continue monitoring blood pressures closely and close outpatient follow-up with primary care provider as well as cardiology The impression and plan of care has been dictated by Dayanara Shepard, Nurse Practitioner as directed. Dr. Yasmine MD I have performed a history and examination and MDM of this patient, discussed the same with the dictator, and agree with the dictator's assessment and plan as written ,documented as a scribe. Based on total visit time, I have performed more than 50% of the visit. Past Medical History Past Medical History: Coronary Artery Disease (CAD), Chest Pain / Angina, GERD/Reflux, Hypertension, Thyroid Disorder Additional Past Medical History / Comment(s): HAD COVID IN 2020. DIVERTICULITIS. GOUTT History of Any Multi-Drug Resistant Organisms: MRSA Date of last positivie culture/infection: 05/30/18 MDRO Source:: RIGHT LEG Past Surgical History: Heart Catheterization With Stent, Hernia Repair Additional Past Surgical History / Comment(s): bilateral ing hernia (EACH AT DIFFERENT TIMES) Past Anesthesia/Blood Transfusion Reactions: No Reported Reaction Date of Last Stent Placement:: october 2023 Past Psychological History: Anxiety Smoking Status: Never smoker Past Alcohol Use History: Occasional Past Drug Use History: None Reported - Past Family History Father Family Medical History: Hypertension, Myocardial Infarction ([place]) Mother Additional Family Medical History / Comment(s): lupus Medications and Allergies Home Medications Medication Instructions Recorded Confirmed Type Levothyroxine Sodium [Synthroid] 175 mcg PO DAILY 08/14/19 01/03/25 History Aspirin EC [Ecotrin Low Dose] 81 mg PO DAILY 10/19/23 01/03/25 History Omeprazole [PriLOSEC] 20 mg PO DAILY 10/19/23 01/03/25 History Clopidogrel [Plavix] 75 mg PO DAILY #90 tab 10/23/23 01/03/25 Rx Nitroglycerin Sl Tabs [Nitrostat] 0.4 mg SL Q5M PRN 10/25/23 01/03/25 History Ezetimibe [Zetia] 10 mg PO DAILY 04/20/24 01/03/25 History Losartan [Cozaar] 25 mg PO DAILY 01/03/25 01/03/25 History amLODIPine [Norvasc] 5 mg PO DAILY 30 Days #30 tab 01/03/25 Rx Allergies Allergy/AdvReac Type Severity Reaction Status Date / Time No Known Allergies Allergy Verified 01/03/25 09:02 Physical Exam Vitals: Vital Signs Temp Pulse Pulse Resp BP BP BP 01/03/25 07:00 97.5 F L 50 L 16 170/91 01/03/25 04:27 97.5 F L 52 L 16 187/97 01/03/25 03:18 97.7 F 45 L 16 158/104 01/03/25 02:02 97.8 F 54 L 18 179/101 01/02/25 23:41 77 163/107 01/02/25 23:08 97.9 F 55 L 19 187/103 Pulse Ox 01/03/25 07:00 98 01/03/25 04:27 100 01/03/25 03:18 97 01/03/25 02:02 97 01/02/25 23:41 97 01/02/25 23:08 98 Intake and Output 01/02/25 01/03/25 01/03/25 22:59 06:59 14:59 Other: Voiding Method Toilet # Voids 1 Weight 81.647 kg Results CBC & Chem 7: 01/02/25 23:30 01/02/25 23:30 Thrombosis Risk Factor Assmnt - Choose All That Apply Each Factor Represents 1 point: Obesity (BMI >25) Each Risk Factor Represents 2 Points: Age 61-74 years Thrombosis Risk Factor Assessment Total Risk Factor Score: 3 Thrombosis Risk Factor Assessment Level: Moderate Risk
== END 2025-01-03 11:50 | disposition home or self-care (01) ==
LOC: EC 23:07 → 6NMEDSUR 01-03 01:17
PROVIDERS: ADMIT Hospitalist; ATTEND Hospitalist
DX: R07.89 Other chest pain (principal); I10 Essential (primary) hypertension; R00.1 Bradycardia, unspecified; E78.5 Hyperlipidemia, unspecified; I34.0 Nonrheumatic mitral (valve) insufficiency; I38 Endocarditis, valve unspecified; I25.119 Atherosclerotic heart disease of native coronary artery with unspecified angina pectoris; I25.2 Old myocardial infarction; K21.9 Gastro-esophageal reflux disease without esophagitis; E03.9 Hypothyroidism, unspecified; F41.9 Anxiety disorder, unspecified; E66.9 Obesity, unspecified; Z68.25 Body mass index [BMI] 25.0-25.9, adult; Z79.890 Hormone replacement therapy; Z79.82 Long term (current) use of aspirin; Z79.02 Long term (current) use of antithrombotics/antiplatelets; Z79.899 Other long term (current) drug therapy; Z95.5 Presence of coronary angioplasty implant and graft
CPT/HCPCS: 99285; 36415; 93005; 80053; 84443; 83735; 84484 ×2; 85025; 85610; 85730; 71046; G0378